=== PATIENT | male | born 1990 | race African-American/Black ===

== ENCOUNTER 2017-04-23 15:19 | Emergency (ER) | payer BC, OTHER ==
[~2017-04-23] VITALS: Ht 180.3 cm; Wt 59.0 kg
[2017-04-23] MEDS ORDERED: Tetanus/Diptheria/Pertussis Vaccine 0.5ml Syr IM ONE (16:15)
[2017-04-23] MEDS ORDERED: BACITRACIN-P28.35 GM TP (16:18)
--- NOTE | 2017-04-23 16:18 | Emergency Room Report ---
History of Present Illness General Chief Complaint: General Complaint Source: Patient Present Illness HPI 27 YO male non bleeding lac to the distal left thumb, since last night accidentally cut himself while cooking. unknown last tetanus, not on blood thinning medications. pt. also c/o increased anxiety previously was on Prozac and other medications to manage anxiety. pt. states buspar does not help. reports mild depression as well. denies SI/HI. Denies numbness tingling or loss of sensation or gross motor movements of the extremities, incontinence of bowel or bladder.Denies CP, Palpitations, LOC, AMS , dizziness, Changes in Vision, Sensation, paresthesias, or a sudden severe headache. Allergies: Coded Allergies: No Known Allergies (Unverified , 04/23/17) Patient History Past Medical History: see triage record Past Surgical History: none Pertinent Family History: none Reviewed Nursing Documentation: PMH: Agreed, PSxH: Agreed Nursing Documentation-PMH Past Medical History: No Stated History Review of Systems All Other Systems: negative except mentioned in HPI Physical Exam Vital Signs Date Time Temp Pulse Resp B/P Pulse Ox O2 Delivery O2 Flow Rate FiO2 04/23/17 15:28 99.3 72 16 121/73 96 Room Air Sp02 EP Interpretation: reviewed, normal General Appearance: no apparent distress, alert, GCS 15, non-toxic Head: normocephalic, atraumatic Eyes: bilateral eye normal inspection, bilateral eye PERRL ENT: hearing grossly normal, normal voice Neck: full range of motion, supple/symm/no masses Respiratory: lungs clear, normal breath sounds, speaking full sentences Cardiovascular #1: regular rate, rhythm Musculoskeletal: back normal, gait/station normal, normal range of motion, non- tender Neurologic: alert, oriented x3, responsive, motor strength/tone normal, sensory intact, speech normal Psychiatric: judgement/insight normal, memory normal, mood/affect normal, no suicidal/homicidal ideation, other - pt has calm affect. Skin: normal color, no rash, warm/dry, well hydrated, laceration - superficial laceration to the left thumb, clean, not bleeding at this time. Lymphatic: no adenopathy Medical Decision Making VINICIUS Anderson is my supervising physician whom pt. management has been discussed with. Diagnostic Impression: Primary Impression: Laceration Additional Impression: History of anxiety ER Course 27 YO male non bleeding lac to the distal left thumb, since last night accidentally cut himself while cooking. unknown last tetanus, not on blood thinning medications. pt. also c/o increased anxiety previously was on Prozac and other medications to manage anxiety. pt. states buspar does not help. reports mild depression as well. denies SI/HI. Denies numbness tingling or loss of sensation or gross motor movements of the extremities, incontinence of bowel or bladder. Denies CP, Palpitations, LOC, AMS , dizziness, Changes in Vision, Sensation, paresthesias, or a sudden severe headache. Ddx considered but are not limited to laceration, tendon injury, cellulitis, amputation Vital signs: are WNL, pt. is afebrile H&PE are most consistent with: superficial left thumb laceration approx 2 cm in length ORDERS: none required at this time, the diagnosis is clinical ED INTERVENTIONS: -Tetanus vaccine was administered as pt. vaccination status was unknown. - The wound was copiously irrigated with normal saline, and explored for foreign body for which no FB was found. - The wound was approximated and closed using derma-lees Patient is also given [facility] mental health information for followup. DISCHARGE: At this time pt. is stable for d/c to home. Will provide printed patient care instructions, and any necessary prescriptions. Care plan and follow up instructions have been discussed with the patient prior to discharge. Last Vital Signs Date Time Temp Pulse Resp B/P Pulse Ox O2 Delivery O2 Flow Rate FiO2 04/23/17 15:28 99.3 72 16 121/73 96 Room Air Disposition: HOME, SELF-CARE Condition: Stable Scripts Bacitracin/Polymyxin B Sulfate (BACITRACIN-POLYMYXIN OINTMENT) 28.35 Gm Oint...g. 1 APPLIC TP BID, #28.3 GM Prov: Екатерина Carlos 04/23/17 Departure Forms: Return to Work Return to Work Date: Apr 24, 2017 Work Restrictions: None Other Restrictions: please excuse for and Monday. Return to Full Activity: Apr 24, 2017 Patient Instructions: Nonsutured Laceration Care Additional Instructions: Take medications as directed. Follow up with a Psychiatric provider and PCP in 3-5 days, even if your symptoms have resolved. --Please review list of primary care clinics, if you do not already have a primary care provider Review [facility] information for follow up and medication management of your continued anxiety. Return sooner to ED if new symptoms occur, or current symptoms become worse. - Please note that this Emergency Department Report was dictated using [employer] Butler[employer] watchman technology software, occasionally this can lead to erroneous entry secondary to interpretation by the dictation equipment. Екатерина Carlos Apr 23, 2017 16:18
[2017-04-23 16:45] VITALS: BP 121/73
[2017-04-23 16:48] VITALS: BP 121/73
== END 2017-04-23 16:49 | disposition home or self-care (01) ==
LOC: EMR 16:05
DX: S61.012A Laceration without foreign body of left thumb without damage to nail, initial encounter (principal); W45.8XXA Other foreign body or object entering through skin, initial encounter; Y93.G3 Activity, cooking and baking; Y92.9 Unspecified place or not applicable; Z23 Encounter for immunization; F41.9 Anxiety disorder, unspecified
CPT/HCPCS: 90471; 90715; 96372; 96374

== ENCOUNTER 2017-05-10 17:10 | Emergency (ER) | payer OTHER ==
[~2017-05-10] VITALS: Ht 180.3 cm; Wt 59.0 kg
[~2017-05-10 17:10] MED LIST: BACITRACIN-P28.35 GM TP
[2017-05-10] MEDS ORDERED: NKM (17:23)
--- NOTE | 2017-05-10 17:26 | Emergency Room Report ---
History of Present Illness General Chief Complaint: Abdominal Pain Source: Patient Present Illness HPI 27-year-old male presents to the emergency department complaining of acute episode of lower abdominal cramping this morning that he rates as 3/10 in severity. Patient denies associated nausea, vomiting, diarrhea or constipation. Patient denies dysuria, hematuria, penile discharge, testicular pain, abdominal tenderness. He denies fevers or chills. Patient states that he had to leave from work early and is requiring a note. Patient denies rash, joint pain. He states she took a Tylenol this a.m. which provided relief. Denies CP, Palpitations, LOC, AMS, dizziness, Changes in Vision, Sensation, paresthesias, or a sudden severe headache. Allergies: Coded Allergies: No Known Allergies (Unverified , 04/23/17) Patient History Past Medical History: see triage record Past Surgical History: none Pertinent Family History: none Immunizations: UTD Reviewed Nursing Documentation: PMH: Agreed, PSxH: Agreed Nursing Documentation-PMH Past Medical History: No Stated History Review of Systems All Other Systems: negative except mentioned in HPI Physical Exam Vital Signs Date Time Temp Pulse Resp B/P (MAP) Pulse Ox O2 Delivery O2 Flow Rate FiO2 05/10/17 17:18 98.2 78 16 120/76 97 Room Air Sp02 EP Interpretation: reviewed, normal General Appearance: no apparent distress, alert, GCS 15, non-toxic Head: normocephalic, atraumatic Eyes: bilateral eye normal inspection, bilateral eye PERRL ENT: hearing grossly normal, no angioedema, normal voice Neck: full range of motion Respiratory: lungs clear, normal breath sounds, speaking full sentences Cardiovascular #1: regular rate, rhythm Gastrointestinal: normal bowel sounds, non tender, soft, non-distended, no guarding, no rebound Rectal: deferred Genitourinary: normal inspection, no CVA tenderness Musculoskeletal: back normal, gait/station normal, normal range of motion, non- tender Neurologic: alert, oriented x3, responsive, motor strength/tone normal, sensory intact, normal gait, speech normal Psychiatric: judgement/insight normal, memory normal, mood/affect normal Skin: normal color, no rash, warm/dry, well hydrated Medical Decision Making PA Attestation Dr. Vidal is my supervising Physician whom patient management has been discussed with. Diagnostic Impression: Primary Impression: Encounter for medical screening examination Additional Impression: Abdominal pain Qualified Codes: R10.30 - Lower abdominal pain, unspecified ER Course 27-year-old male presents to the emergency department complaining of acute episode of lower abdominal cramping this morning that he rates as 3/10 in severity. Patient denies associated nausea, vomiting, diarrhea or constipation. Patient denies dysuria, hematuria, penile discharge, testicular pain, abdominal tenderness. He denies fevers or chills. Patient states that he had to leave from work early and is requiring a note. Patient denies rash, joint pain. He states she took a Tylenol this a.m. which provided relief. Denies CP, Palpitations, LOC, AMS, dizziness, Changes in Vision, Sensation, paresthesias, or a sudden severe headache. Ddx considered but are not limited to Diverticulitis, acute appy, diarrhea,UC, PUD, GE, pancreatitis, gallstone, UTI, STI, Malingering-for work note Vital signs: are WNL, pt. is afebrile, NAD, NON-toxic H&PE are most consistent with isolated episode of lower abdominal cramping this am. Normal PE ORDERS: none required at this time. pt. is Asymptomatic, and NAD, Non-toxic ED INTERVENTIONS: none required at this time. -suspect misuse of Emergency Dept. Resources for work note. DISCHARGE: At this time pt. is stable for d/c to home. Will provide printed patient care instructions, and any necessary prescriptions. Care plan and follow up instructions have been discussed with the patient prior to discharge. Last Vital Signs Date Time Temp Pulse Resp B/P (MAP) Pulse Ox O2 Delivery O2 Flow Rate FiO2 05/10/17 17:18 98.2 78 16 120/76 97 Room Air Disposition: HOME, SELF-CARE Condition: Stable Departure Forms: Return to Work Return to Work Date: May 11, 2017 Work Restrictions: None Return to Full Activity: May 11, 2017 Patient Instructions: Medical Screening Exam Additional Instructions: Take any previously prescribed medications as directed. Follow up with a Primary Care Provider in 3-5 days, even if your symptoms have resolved. --Please review list of primary care clinics, if you do not already have a primary care provider Return sooner to ED if new symptoms occur, or current symptoms become worse. - Please note that this Emergency Department Report was dictated using [employer] Entertainments[employer]visor cytology technology software, occasionally this can lead to erroneous entry secondary to interpretation by the dictation equipment. Екатерина Carlos May 10, 2017 17:26
[2017-05-10 17:47] VITALS: BP 120/76
[2017-05-10 18:31] VITALS: BP 120/76
== END 2017-05-10 18:32 | disposition home or self-care (01) ==
LOC: EMR 17:48
DX: Z13.9 Encounter for screening, unspecified (principal); R10.30 Lower abdominal pain, unspecified
CPT/HCPCS: 99282

== ENCOUNTER 2017-07-20 14:02 | Emergency (ER) | payer OTHER ==
[~2017-07-20] VITALS: Ht 180.3 cm; Wt 59.0 kg
[~2017-07-20 14:02] MED LIST changes: +NKM
[2017-07-20] MEDS ORDERED: TYLENOL EXTRA500 MG ORAL (14:32)
[2017-07-20] MEDS ORDERED: ZOFRAN4 M3 ORAL (14:32)
[2017-07-20] MEDS ORDERED: METAMUCIL POWD575 GM PO (14:32)
[2017-07-20 14:34] VITALS: BP 134/72
[2017-07-20 14:38] VITALS: BP 134/72
--- NOTE | 2017-07-20 15:14 | Emergency Room Report ---
History of Present Illness General Chief Complaint: Abdominal Pain Source: Patient Present Illness HPI The patient is a 27-year-old male presenting for abdominal pain and diarrhea since this morning. he denies any recent travel or known sick contacts. Abdominal pain described as a 3/10 dull ache to the mid upper abdomen. Does not radiate. He states that he has had watery stools since this morning described as light brown. He denies any nausea or vomiting. He denies fever or chills. He states that he is currently feeling better. Allergies: Coded Allergies: No Known Allergies (Unverified , 04/23/17) Patient History Past Medical History: see triage record Pertinent Family History: none Reviewed Nursing Documentation: PMH: Agreed, PSxH: Agreed Nursing Documentation-PMH Hx Cardiac Problems: Yes Review of Systems All Other Systems: negative except mentioned in HPI Physical Exam Vital Signs Date Time Temp Pulse Resp B/P (MAP) Pulse Ox O2 Delivery O2 Flow Rate FiO2 07/20/17 14:05 97.5 115 20 134/72 99 Sp02 EP Interpretation: reviewed, normal General Appearance: no apparent distress, alert, GCS 15, non-toxic Head: normocephalic, atraumatic Eyes: bilateral eye normal inspection, bilateral eye PERRL ENT: hearing grossly normal, normal pharynx, no angioedema, normal voice Gastrointestinal: normal bowel sounds, non tender, soft, no mass, non-distended , no guarding, no rebound Rectal: deferred Genitourinary: normal inspection, no CVA tenderness Musculoskeletal: back normal, gait/station normal, normal range of motion Neurologic: alert, oriented x3, responsive, motor strength/tone normal, sensory intact, speech normal Psychiatric: judgement/insight normal, memory normal, mood/affect normal, no suicidal/homicidal ideation Skin: normal color, no rash, warm/dry, well hydrated Medical Decision Making PA Attestation Dr. Jack is my supervising physician. Patient management was discussed with my supervising physician Diagnostic Impression: Primary Impression: Diarrhea Qualified Codes: R19.7 - Diarrhea, unspecified ER Course The patient is a 27-year-old male presenting for abdominal pain and diarrhea since this morning Differential diagnoses considered but not limited to: Gastroenteritis, GERD, gastritis, appendicitis, pancreatitis PE: Vitals WNL. NAD. Abdomen: Normal appearance. Non distended. No ecchymosis. Increased BS. No abdominal tenderness. No McBurney point tenderness. No guarding. No CVA tenderness No labs are necessary at this time. He will be discharged home with prescription for zofran, tylenol, and Metamucil and will Fu with PMD. ER precautions given Last Vital Signs Date Time Temp Pulse Resp B/P (MAP) Pulse Ox O2 Delivery O2 Flow Rate FiO2 07/20/17 14:38 97.5 72 20 134/72 99 Status: improved Disposition: HOME, SELF-CARE Condition: Improved Scripts Acetaminophen* (TYLENOL EXTRA STRENGTH*) 500 Mg Tablet 500 MG ORAL Q8H Y for Prn Headache/Temp > 101, #30 TAB 0 Refills Prov: MIAH PAN.ATali 07/20/17 Psyllium Husk (with Sugar) (METAMUCIL POWDER) 575 Gm Powder 1 TBS PO DAILY, #575 GM Prov: MIAH PAN P.A. 07/20/17 Ondansetron* (ZOFRAN*) 4 Mg Tablet 4 MG ORAL Q6H Y for Nausea & Vomiting, #10 TAB Prov: MIAH PAN P.A. 07/20/17 Referrals: [facility],REFERRING (PCP) Patient Instructions: Diarrhea, Adult, Abdominal Pain, Adult Additional Instructions: I discussed my findings with the patient. All questions and concerns have been answered. Treatment and medication compliance have been addressed. Return to ED if symptoms worsen, continue past one week, new symptoms arise, you notice blood in stools, you have a fever, or if needed for any reason. Patient verbalized understanding of discharge instructions. MIAH PAN Jul 20, 2017 15:14
== END 2017-07-20 14:50 | disposition home or self-care (01) ==
LOC: EMR 14:20
DX: R19.7 Diarrhea, unspecified (principal); R10.10 Upper abdominal pain, unspecified
CPT/HCPCS: 99284

== ENCOUNTER 2017-08-09 11:30 | Emergency (ER) | payer OTHER ==
[~2017-08-09] VITALS: Ht 180.3 cm; Wt 59.0 kg
[~2017-08-09 11:30] MED LIST changes: +METAMUCIL POWD575 GM PO; +TYLENOL EXTRA500 MG ORAL; +ZOFRAN4 M3 ORAL
--- NOTE | 2017-08-09 12:26 | Emergency Room Report ---
History of Present Illness General Chief Complaint: Headache Source: Patient Present Illness HPI 27 YO Male presents to the ED c/O 12/12 in severity left sided progressing throbbing BLAKE since last night. pt. reports some mild relief with Excedrin PO, last taken at 7am. Pt. reports hx of migraines and states that current BLAKE is similar in character to BLAKE's he has experienced in the past. denies trauma, fall , neck pain/stiffness, weakness, difficulty with speech, imbalance or nausea/ vomiting. pt. denies visual or auditory symptoms. Denies CP, Palpitations, LOC, AMS, dizziness, Changes in Vision, Sensation, paresthesias, or a sudden severe headache. Allergies: Coded Allergies: No Known Allergies (Unverified , 04/23/17) Patient History Past Medical History: see triage record Past Surgical History: none Pertinent Family History: none Immunizations: UTD Reviewed Nursing Documentation: PMH: Agreed, PSxH: Agreed Nursing Documentation-PMH Past Medical History: No Stated History Hx Cardiac Problems: Yes Review of Systems All Other Systems: negative except mentioned in HPI Physical Exam Vital Signs Date Time Temp Pulse Resp B/P (MAP) Pulse Ox O2 Delivery O2 Flow Rate FiO2 08/09/17 11:32 97.7 91 14 122/74 96 Room Air Sp02 EP Interpretation: reviewed, normal General Appearance: no apparent distress, alert, GCS 15, non-toxic Head: normocephalic, atraumatic Eyes: bilateral eye normal inspection, bilateral eye PERRL ENT: hearing grossly normal, normal voice Neck: full range of motion, no meningismus, no bony tend, supple/symm/no masses Respiratory: chest non-tender, lungs clear, normal breath sounds, speaking full sentences Cardiovascular #1: regular rate, rhythm Musculoskeletal: back normal, gait/station normal, normal range of motion, non- tender Neurologic: alert, oriented x3, responsive, motor strength/tone normal, sensory intact, normal gait, speech normal, grossly normal Skin: normal color, no rash, warm/dry, well hydrated Medical Decision Making PA Attestation Dr. Jakc is my supervising Physician whom patient management has been discussed with. Diagnostic Impression: Primary Impression: Headache Qualified Codes: R51 - Headache ER Course 27 YO Male presents to the ED c/O 12/12 in severity left sided progressing throbbing BLAKE since last night. pt. reports some mild relief with Excedrin PO, last taken at 7am. Pt. reports hx of migraines and states that current BLAKE is similar in character to BLAKE's he has experienced in the past. denies trauma, fall , neck pain/stiffness, weakness, difficulty with speech, imbalance or nausea/ vomiting. pt. denies visual or auditory symptoms. Denies CP, Palpitations, LOC, AMS, dizziness, Changes in Vision, Sensation, paresthesias, or a sudden severe headache. Ddx considered but are not limited to migraine, SAH, Psedudo motor Cerebri, Mass lesion, Cluster BLAKE, Tension BLAKE, Post lumbar puncture BLAKE. Vital signs: are WNL, pt. is afebrile H&PE are most consistent with migraine headache ORDERS: -Reglan -Excedrin PO -IM Toradol ED INTERVENTIONS: -D/W pt. to follow up with his neurologist and PMD within 3-5 days, or return sooner to the ED with worsening or new symptoms. DISCHARGE: At this time pt. is stable for d/c to home. Will provide printed patient care instructions, and any necessary prescriptions. Care plan and follow up instructions have been discussed with the patient prior to discharge. Last Vital Signs Date Time Temp Pulse Resp B/P (MAP) Pulse Ox O2 Delivery O2 Flow Rate FiO2 08/09/17 11:32 97.7 91 14 122/74 96 Room Air Disposition: HOME, SELF-CARE Condition: Stable Scripts Aspirin/Acetaminophen/Caffeine (EXCEDRIN MIGRAINE GELTAB) 1 Each Tablet 1 EACH PO Q6HR, #20 TAB Prov: Екатерина Carlos P.A. 08/09/17 Metoclopramide Hcl* (REGLAN*) 5 Mg Tablet 5 MG ORAL EVERY 6 HOURS Y for For Headache, #10 TAB Prov: Екатерина Carlos P.A. 08/09/17 Patient Instructions: Migraine Headache Additional Instructions: Take medications as directed. Follow up with a Primary Care Provider and or your Neurologist in 3-5 days , even if your symptoms have resolved. --Please review list of primary care clinics, if you do not already have a primary care provider Return sooner to ED if new symptoms occur, or current symptoms become worse. - Please note that this Emergency Department Report was dictated using [employer] director technology software, occasionally this can lead to erroneous entry secondary to interpretation by the dictation equipment. Екатерина Carlos Aug 09, 2017 12:26
[2017-08-09] MEDS ORDERED: Excedrin Migraine tab ORAL ONE (12:30)
[2017-08-09] MEDS ORDERED: Ketorolac 60mg Inj IM ONE (12:30)
[2017-08-09] MEDS ORDERED: EXCEDRIN MIGRA1 EACH PO (12:40)
[2017-08-09] MEDS ORDERED: REGLAN5 MG ORAL (12:40)
[2017-08-09 12:44] VITALS: BP 120/68
[2017-08-09 12:57] VITALS: BP 128/77
== END 2017-08-09 12:58 | disposition home or self-care (01) ==
LOC: EMR 12:07
DX: R51 Headache (principal)
CPT/HCPCS: 96372; 99284

== ENCOUNTER 2017-08-16 19:34 | Emergency (ER) | payer OTHER ==
[~2017-08-16] VITALS: Ht 180.3 cm; Wt 59.0 kg
[~2017-08-16 19:34] MED LIST changes: +EXCEDRIN MIGRA1 EACH PO; +REGLAN5 MG ORAL
[2017-08-16 20:01] VITALS: BP 120/72
--- NOTE | 2017-08-16 20:04 | Emergency Room Report ---
History of Present Illness General Chief Complaint: Behavioral Complaint Source: Patient Present Illness HPI 27-year-old male presents to the emergency department complaining of continued anxiety despite taking antianxiety medication and x2 weeks. Patient states that he has not contacted his primary care provider for follow. Patient states that he has had generalized anxiety for 3 years and just recently was started on SSRI unknown name and he feels that it is not working. She reports overwhelming feelings of worry. Denies SI or HI he denies recent traumatic events or history of TB I. Denies CP, Palpitations, LOC, AMS, dizziness, Changes in Vision, Sensation, paresthesias, or a sudden severe headache. Allergies: Coded Allergies: No Known Allergies (Unverified , 04/23/17) Patient History Past Medical History: see triage record, psych hx Past Surgical History: none Pertinent Family History: none Immunizations: UTD Reviewed Nursing Documentation: PMH: Agreed, PSxH: Agreed Nursing Documentation-PMH Hx Cardiac Problems: Yes Review of Systems All Other Systems: negative except mentioned in HPI Physical Exam Vital Signs Date Time Temp Pulse Resp B/P (MAP) Pulse Ox O2 Delivery O2 Flow Rate FiO2 08/16/17 19:41 98.1 84 20 120/72 99 Room Air Sp02 EP Interpretation: reviewed, normal General Appearance: no apparent distress, alert, GCS 15, non-toxic Head: normocephalic, atraumatic Eyes: bilateral eye normal inspection, bilateral eye PERRL ENT: hearing grossly normal, normal voice Neck: full range of motion Respiratory: lungs clear, normal breath sounds, speaking full sentences Cardiovascular #1: regular rate, rhythm Musculoskeletal: back normal, gait/station normal, normal range of motion Neurologic: alert, oriented x3, responsive, motor strength/tone normal, sensory intact, normal gait, speech normal Psychiatric: judgement/insight normal, memory normal, mood/affect normal, no suicidal/homicidal ideation, other - Flat affected , yet talkative. Skin: normal color, no rash, warm/dry, well hydrated Medical Decision Making PA Attestation Dr. poole is my supervising Physician whom patient management has been discussed with. Diagnostic Impression: Primary Impression: History of anxiety ER Course 27-year-old male presents to the emergency department complaining of continued anxiety despite taking antianxiety medication and x2 weeks. Patient states that he has not contacted his primary care provider for follow. Patient states that he has had generalized anxiety for 3 years and just recently was started on SSRI unknown name and he feels that it is not working. She reports overwhelming feelings of worry. Denies SI or HI he denies recent traumatic events or history of TB I. Denies CP, Palpitations, LOC, AMS, dizziness, Changes in Vision, Sensation, paresthesias, or a sudden severe headache. Ddx considered but are not limited to anxiety, CO, PE, asthma, thyroid storm, hyperthyroid, EPS Vital signs: are WNL, pt. is afebrile H&PE are most consistent with LUL, not currently having anxiety attack. ORDERS: none required at this time, the diagnosis is clinical ED INTERVENTIONS: -I do not suspect an emergent condition at this time. With current presentation , pt. is stable for close outpatient follow up and conservative treatment. D/ w pt. to return promptly to ED with worsening or new symptoms.- Pt. (and or responsible green party) verbalizes' understanding and agreement with proposed treatment plan. -He is given reassurance that SSRIs may take up to 4 weeks before symptoms improve. Discussed the patient he is to followup with his primary prescribing doctor and be managed by one professional only. Discussed with patient I will discharge him with a small quantity of anti-anxiety medication. And also give him next is mental health urgent care referral information for any continued medication management or for prescription of any controlled antianxiety medications. DISCHARGE: At this time pt. is stable for d/c to home. Will provide printed patient care instructions, and any necessary prescriptions. Care plan and follow up instructions have been discussed with the patient prior to discharge. Last Vital Signs Date Time Temp Pulse Resp B/P (MAP) Pulse Ox O2 Delivery O2 Flow Rate FiO2 08/16/17 19:41 98.1 84 20 120/72 99 Room Air Disposition: HOME, SELF-CARE Condition: Stable Scripts Buspirone Hcl* (BUSPAR*) 10 Mg Tablet 10 MG ORAL PRN anxiety, #15 TAB 0 Refills Prov: Екатерина Carlos 08/16/17 Patient Instructions: Generalized Anxiety Disorder Additional Instructions: Take medications as directed. ---Follow up at [facility] for medication management. Follow up with a Primary Care Provider in 3-5 days, even if your symptoms have resolved. --Please review list of primary care clinics, if you do not already have a primary care provider Return sooner to ED if new symptoms occur, or current symptoms become worse. - Please note that this Emergency Department Report was dictated using [employer] mgr technology software, occasionally this can lead to erroneous entry secondary to interpretation by the dictation equipment. Екатерина Carlos Aug 16, 2017 20:04
[2017-08-16] MEDS ORDERED: BUSPAR10 MG ORAL (20:05)
[2017-08-16 20:30] VITALS: BP 118/70
== END 2017-08-16 20:29 | disposition home or self-care (01) ==
LOC: EMR 19:58
DX: F41.9 Anxiety disorder, unspecified (principal)
CPT/HCPCS: 99283

== ENCOUNTER 2017-09-06 03:17 | Emergency (ER) | payer BC, OTHER ==
[~2017-09-06] VITALS: Ht 180.3 cm; Wt 59.0 kg
[~2017-09-06 03:17] MED LIST changes: +BUSPAR10 MG ORAL
[2017-09-06 03:44] VITALS: BP 117/72
[2017-09-06] MEDS ORDERED: IBUPROFEN600 MG ORAL (03:56)
--- NOTE | 2017-09-06 03:56 | Emergency Room Report ---
History of Present Illness General Chief Complaint: Diarrhea Source: Patient Present Illness HPI This is a 27-year-old male with a history of anxiety. He present she complaining of abdominal cramps and diarrhea. Onset was yesterday. He had to leave work early. He denies any fever or chills. Diarrhea is watery. Pain is crampy in nature. Nothing made it better. Nothing made it worse. Allergies: Coded Allergies: No Known Allergies (Unverified , 04/23/17) Patient History Past Medical History: see triage record, old chart reviewed, psych hx Past Surgical History: other Pertinent Family History: none Social History: Denies: smoking Immunizations: other Reviewed Nursing Documentation: PMH: Agreed, PSxH: Agreed Nursing Documentation-PMH Past Medical History: No Stated History Hx Cardiac Problems: No Review of Systems Eye: Denies: eye pain, blurred vision ENT: Denies: ear pain, nose congestion, throat swelling Respiratory: Denies: cough, shortness of breath Cardiovascular: Denies: chest pain, palpitations Gastrointestinal: Reports: abdominal pain, diarrhea, Denies: nausea, vomiting Musculoskeletal: Denies: back pain, joint pain Skin: Denies: rash Neurological: Denies: headache, numbness Endocrine: Denies: increased thirst, increased urine Hematologic/Lymphatic: Denies: easy bruising All Other Systems: negative except mentioned in HPI Physical Exam Vital Signs Date Time Temp Pulse Resp B/P (MAP) Pulse Ox O2 Delivery O2 Flow Rate FiO2 09/06/17 03:24 97.9 74 12 117/72 96 Room Air vitals normal Sp02 EP Interpretation: reviewed, normal General Appearance: well appearing, no apparent distress, alert Head: normocephalic, atraumatic Eyes: bilateral eye PERRL, bilateral eye EOMI ENT: hearing grossly normal, normal pharynx Neck: full range of motion, supple, no meningismus Respiratory: chest non-tender, lungs clear, normal breath sounds Cardiovascular #1: regular rate, rhythm, no murmur Gastrointestinal: non tender, no mass, no organomegaly, no bruit, non-distended , abnormal bowel sounds - Hyperactive Musculoskeletal: back normal, gait/station normal, normal range of motion Psychiatric: mood/affect normal Skin: warm/dry Medical Decision Making Diagnostic Impression: Primary Impression: Diarrhea Qualified Codes: R19.7 - Diarrhea, unspecified ER Course Present with diarrhea. Most likely viral in nature. No evidence of an acute abdomen or obstruction. He looks well otherwise. We'll discharge home with reassurance. Last Vital Signs Date Time Temp Pulse Resp B/P (MAP) Pulse Ox O2 Delivery O2 Flow Rate FiO2 09/06/17 03:44 97.9 12 117/72 96 Room Air 09/06/17 03:24 74 Status: unchanged Disposition: HOME, SELF-CARE Condition: Stable Scripts Ibuprofen* (MOTRIN*) 600 Mg Tablet 600 MG ORAL THREE TIMES A DAY, #30 TAB 0 Refills Prov: YASH BOSCH M.D. 09/06/17 Patient Instructions: Diarrhea, Adult Additional Instructions: Followup with your Dr. in 7 days as needed. Return if symptom worsen. May take Motrin for pain. YASH BOSCH M.D. Sep 06, 2017 03:56
[2017-09-06 04:05] VITALS: BP 120/74
[2017-09-06 04:08] VITALS: BP 120/74
== END 2017-09-06 04:14 | disposition home or self-care (01) ==
LOC: EMR 04:14
DX: R19.7 Diarrhea, unspecified (principal)
CPT/HCPCS: 99283

== ENCOUNTER 2017-09-22 11:58 | Emergency (ER) | payer BC, OTHER ==
[~2017-09-22] VITALS: Ht 180.3 cm; Wt 59.0 kg
[~2017-09-22 11:58] MED LIST changes: +IBUPROFEN600 MG ORAL
[2017-09-22 12:01] VITALS: BP 125/73
[2017-09-22] MEDS ORDERED: Lidocaine 2% Visc 15ml soln ORAL ONE (12:30)
[2017-09-22] MEDS ORDERED: Mylanta II UD 30ml ORAL ONE (12:30)
[2017-09-22] MEDS ORDERED: Dicyclomine HCl 10mg/5ml oral soln ORAL ONE (12:30)
[2017-09-22] MEDS ORDERED: PEPCID20 MG ORAL (13:24)
[2017-09-22] MEDS ORDERED: ZOFRAN4 M3 ORAL (13:24)
[2017-09-22 13:28] VITALS: BP 125/73
--- NOTE | 2017-09-22 21:54 | Emergency Room Report ---
History of Present Illness General Chief Complaint: Abdominal Pain Source: Patient Present Illness HPI The patient is a 27 -year-old male presenting for 2 days of mid upper abdominal pain. he states that this radiates to his mid chest. He has also noticed some fluid accumulation in his mouth. This is worse with laying down and eating. He also admits to nausea but denies vomiting. Pain is an 8/10 burning sensation. he denies other symptoms including fever, chills, diarrhea Allergies: Coded Allergies: No Known Allergies (Unverified , 04/23/17) Patient History Past Medical History: see triage record Pertinent Family History: none Reviewed Nursing Documentation: PMH: Agreed, PSxH: Agreed Nursing Documentation-PMH Past Medical History: No Stated History Hx Cardiac Problems: No Review of Systems All Other Systems: negative except mentioned in HPI Physical Exam Vital Signs Date Time Temp Pulse Resp B/P (MAP) Pulse Ox O2 Delivery O2 Flow Rate FiO2 09/22/17 12:01 97.0 83 16 125/73 97 Room Air Sp02 EP Interpretation: reviewed, normal General Appearance: no apparent distress, alert, GCS 15, non-toxic Head: normocephalic, atraumatic Eyes: bilateral eye normal inspection, bilateral eye PERRL ENT: hearing grossly normal, normal pharynx, no angioedema, normal voice Neck: full range of motion, supple/symm/no masses Respiratory: chest non-tender, lungs clear, normal breath sounds, speaking full sentences Cardiovascular #1: regular rate, rhythm, no edema Gastrointestinal: normal bowel sounds, soft, tenderness - epigastric Genitourinary: normal inspection, no CVA tenderness Musculoskeletal: back normal, gait/station normal, normal range of motion, non- tender Neurologic: alert, oriented x3, responsive, motor strength/tone normal, sensory intact, speech normal Psychiatric: judgement/insight normal, memory normal, mood/affect normal, no suicidal/homicidal ideation Skin: normal color, no rash, warm/dry, well hydrated Medical Decision Making PA Attestation Dr. Conroy is my supervising physician. Patient management was discussed with my supervising physician Diagnostic Impression: Primary Impression: GERD (gastroesophageal reflux disease) Qualified Codes: K21.9 - Gastro-esophageal reflux disease without esophagitis ER Course The patient is a 27 -year-old male presenting for 2 days of mid upper abdominal pain. Differential diagnoses considered but not limited to: GERD, gastritis, gastric ulcer, gastroenteritis Physical exam: Vitals within normal limits. No apparent distress RRR. Lungs are clear to auscultation bilaterally Abdomen is soft. Normal bowel sounds. Nondistended. There is tenderness to palpation over epigastric region only The patient is given a GI cocktail and Zofran and is feeling much better. he will be discharged home and treated for GERD. ER precautions are given Last Vital Signs Date Time Temp Pulse Resp B/P (MAP) Pulse Ox O2 Delivery O2 Flow Rate FiO2 09/22/17 13:28 97.0 78 16 125/73 97 Room Air Status: improved Disposition: HOME, SELF-CARE Condition: Improved Scripts Ondansetron* (ZOFRAN*) 4 Mg Tablet 4 MG ORAL Q6H Y for Nausea & Vomiting, #15 TAB Prov: MIAH PAN 09/22/17 Famotidine (PEPCID) 20 Mg Tablet 20 MG ORAL DAILY, #7 TAB 0 Refills Prov: MIAH PAN 09/22/17 Patient Instructions: Abdominal Pain, Adult, Gastroesophageal Reflux Disease, Adult Additional Instructions: I discussed my findings with the patient. All questions and concerns have been answered. Treatment and medication compliance have been addressed. I advised the patient that they need to follow up with PMD in 3-5 days. Return to ED if symptoms worsen, new symptoms arise, or if needed for any reason. Patient verbalized understanding of discharge instructions. MIAH PAN Sep 22, 2017 21:54
== END 2017-09-22 13:30 | disposition home or self-care (01) ==
LOC: EMR 12:39
DX: K21.9 Gastro-esophageal reflux disease without esophagitis (principal)
CPT/HCPCS: 99284

== ENCOUNTER 2018-01-24 18:27 | Emergency (ER) | payer BC, OTHER ==
[~2018-01-24] VITALS: Ht 180.3 cm; Wt 59.0 kg
[~2018-01-24 18:27] MED LIST changes: +PEPCID20 MG ORAL
[2018-01-24 19:21] VITALS: BP 117/77
--- NOTE | 2018-01-24 19:22 | Emergency Room Report ---
History of Present Illness General Chief Complaint: General Complaint Source: Patient, Medical Record Present Illness HPI 27-year-old male patient presents ER complaining of panic attack. Patient reports feeling dizzy after the attack, denies acute symptoms at this time. Denies suicidal or homicidal ideation. Patient requesting refill of medication that can help treat his panic attacks, patient states his present taken Xanax for relief of his symptoms, states he is "not asking for Xanax" but some alternative medication that can help treat his panic attacks. Denies fever, chest pain, shortness of breath. Allergies: Coded Allergies: No Known Allergies (Unverified , 04/23/17) Patient History Past Medical History: see triage record Reviewed Nursing Documentation: PMH: Agreed; PSxH: Agreed Nursing Documentation-PMH Past Medical History: No History, Except For Hx Cardiac Problems: No Review of Systems All Other Systems: negative except mentioned in HPI Physical Exam Vital Signs Date Time Temp Pulse Resp B/P (MAP) Pulse Ox O2 Delivery O2 Flow Rate FiO2 01/24/18 18:55 98.2 81 18 117/77 95 Room Air 98.2 Sp02 EP Interpretation: reviewed, normal General Appearance: well appearing, no apparent distress, alert, GCS 15, non- toxic Head: normocephalic, atraumatic Eyes: bilateral eye normal inspection, bilateral eye PERRL ENT: hearing grossly normal, normal pharynx, no angioedema, normal voice, uvula midline, moist mucus membranes Neck: full range of motion Respiratory: lungs clear, normal breath sounds, no rhonchi, no respiratory distress, no accessory muscle use, no wheezing, speaking full sentences Cardiovascular #1: regular rate, rhythm, no edema Gastrointestinal: non tender, soft, no mass, non-distended, no guarding, no rebound Genitourinary: no CVA tenderness Musculoskeletal: back normal, digits/nails normal, gait/station normal, normal range of motion, non-tender Neurologic: alert, oriented x3, responsive, sheet cutter III-XII nml as tested, motor strength/tone normal, sensory intact, cerebellar normal, normal gait, speech normal Psychiatric: mood/affect normal, no suicidal/homicidal ideation Skin: no rash Lymphatic: no adenopathy Medical Decision Making PA Attestation Dr. Vidal is my supervising Physician whom patient management has been discussed with. Diagnostic Impression: Primary Impression: History of panic attacks ER Course Pt. presents to the ED requesting medication for panic attacks following attack earlier today, denies acute symptoms at this time. Multiple differentials were considered. Vital signs: are WNL, pt. is afebrile ORDERS: PE benign, lungs clear to auscultation, no abdominal tenderness to palpation, cranial nerves intact as tested. Informed patient the ER cannot begin new medications for anxiety and/or panic disorders. Needs to follow-up with mental health professional and/or PCP for further treatment and management due to side effects related to medication use. We'll not provide refill of Xanax medication. Instructed patient to follow up with [facility] and or [facility] urgent care. Provide patient with contact information for both. Patient reports he will contact his primary care provider tomorrow to discuss treatment plan. Does not believe patient is danger to himself or others right now. Patient walking and talking without difficulty, in no acute distress, nontoxic- appearing. patient reports understanding and agreement to treatment plan. Informed patient ER cannot provide refills in the future; followup, management and prescription of long-term medications must be performed by primary care provider. patient reports no acute symptoms at this time. ER precautions given. patient does not require workup with labs at this time., Consult with Dr. Vidal, agrees with treatment and plan. DISCHARGE: No Rx provided at this time. At this time pt is stable for d/c to home. Patient is resting comfortably, in no acute distress, nontoxic appearing, talking without difficulty. Patient to take medications as instructed Will provide with patient care instructions and any necessary prescriptions. Care plan and follow-up instructions provided. Patient instructed to follow-up with primary care provider in 3 - 5 days. Patient questions asked and answered. Patient reports understanding and agreement to treatment plan. ER precautions given. Patient instructed to return to ER immediately for any new or worsening of symptoms including but not limited to increasing SOB, persistent fever. - Please note that this Emergency Department Report was dictated using [employer].fmelectrical laboratory technician technology software, occasionally this can lead to erroneous entry secondary to interpretation by the dictation equipment. Last Vital Signs Date Time Temp Pulse Resp B/P (MAP) Pulse Ox O2 Delivery O2 Flow Rate FiO2 01/24/18 18:55 98.2 81 18 117/77 95 Room Air 98.2 Disposition: HOME, SELF-CARE Condition: Stable Referrals: [facility],REFERRING (PCP) Patient Instructions: Panic Attacks, [id number] Additional Instructions: Followup with primary care provider and/or mental health professional for management and treatment of panic attacks and anxiety disorder. Provided with contact information for mental health urgent care. May also follow up at [facility]. Take medications as directed. Patient questions asked and answered. ER precautions given, patient instructed to return to ER immediately for any new or worsening of symptoms. Gurmeet Alcantara January 24, 2018 19:22
[2018-01-24 19:42] VITALS: BP 117/77
== END 2018-01-24 19:40 | disposition home or self-care (01) ==
LOC: EMR 19:14
DX: F41.0 Panic disorder [episodic paroxysmal anxiety] (principal)
CPT/HCPCS: 99283

== ENCOUNTER 2018-02-13 20:33 | Emergency (ER) | payer BC, OTHER ==
[~2018-02-13] VITALS: Ht 180.3 cm; Wt 59.0 kg
[2018-02-13] MEDS ORDERED: Mylanta II UD 30ml ORAL ONE (21:15)
[2018-02-13] MEDS ORDERED: Lidocaine 2% Visc 15ml soln ORAL ONE (21:15)
[2018-02-13] MEDS ORDERED: Dicyclomine HCl 10mg/5ml oral soln ORAL ONE (21:15)
[2018-02-13 21:34] LABS: EOSINOPHILS % (AUTO) 0.4 % (0.0-3.0); HEMATOCRIT 42.7 % (42.0-52.0); HEMOGLOBIN 14.9 G/DL (14.2-18.0); LYMPHOCYTES % (AUTO) 20.6 % (20.0-45.0); MEAN CORPUSCULAR VOLUME 94 FL (80-99); MONOCYTES % (AUTO) 6.3 % (1.0-10.0); NEUTROPHILS % (AUTO) 71.7 % (45.0-75.0); PLATELET COUNT 162 K/UL (150-450); RED BLOOD COUNT 4.53 M/UL (4.70-6.10); WHITE BLOOD COUNT 8.7 K/UL (4.8-10.8)
[2018-02-13 21:43] LABS: ANION GAP 6 mmol/L (5-15); BLOOD UREA NITROGEN 15 mg/dL (7-18); CALCIUM 8.9 MG/DL (8.5-10.1); CARBON DIOXIDE 30 MMOL/L (21-32); CHLORIDE 107 MMOL/L (98-107); CREATININE 1.4 MG/DL (0.55-1.30); POTASSIUM 3.3 MMOL/L (3.5-5.1); SODIUM 143 MMOL/L (136-145)
[2018-02-13 21:53] LABS: ALANINE AMINOTRANSFERASE 30 U/L (12-78); ALBUMIN 4.2 G/DL (3.4-5.0); ALBUMIN/GLOBULIN RATIO 1.3 (1.0-2.7); ALKALINE PHOSPHATASE 71 U/L (46-116); ASPARTATE AMINO TRANSFERASE 19 U/L (15-37); BILIRUBIN,TOTAL 1.3 MG/DL (0.2-1.0)
[2018-02-13 21:54] LABS: BILIRUBIN,DIRECT 0.3 MG/DL (0.0-0.3)
[2018-02-13] MEDS ORDERED: RANITIDINE HCL150 MG ORAL (22:33)
[2018-02-13] MEDS ORDERED: ONDANSETRON ODT4 MG BC (22:33)
[2018-02-13 22:45] VITALS: BP 127/78
--- NOTE | 2018-02-14 01:56 | Emergency Room Report ---
History of Present Illness General Chief Complaint: Vomiting Source: Patient Present Illness HPI 27-year-old male presents ED complaining of abdominal pain nausea and vomiting. Started this morning. Has had multiple episodes of vomiting since. Pain is dull, 4 out of 10, nonradiating. Denies fevers or chills. Denies diarrhea. Denies chest pain or shortness of breath. He believes it may be related to some food he ate last night. No other aggravating or relieving factors. Denies any other associated symptoms Allergies: Coded Allergies: No Known Allergies (Unverified , 04/23/17) Patient History Past Medical History: none Past Surgical History: none Pertinent Family History: none Social History: Denies: smoking, alcohol use, drug use Immunizations: UTD Reviewed Nursing Documentation: PMH: Agreed; PSxH: Agreed Nursing Documentation-PMH Past Medical History: No Stated History Hx Cardiac Problems: No Review of Systems All Other Systems: negative except mentioned in HPI Physical Exam Vital Signs Date Time Temp Pulse Resp B/P (MAP) Pulse Ox O2 Delivery O2 Flow Rate FiO2 02/13/18 20:43 98.6 94 16 127/78 95 Room Air 98.6 Sp02 EP Interpretation: reviewed, normal General Appearance: no apparent distress, alert, GCS 15, non-toxic Head: normocephalic, atraumatic Eyes: bilateral eye normal inspection, bilateral eye PERRL ENT: hearing grossly normal, normal pharynx, no angioedema, normal voice Neck: full range of motion, supple/symm/no masses Respiratory: chest non-tender, lungs clear, normal breath sounds, speaking full sentences Cardiovascular #1: regular rate, rhythm, no edema Cardiovascular #2: 2+ carotid (R), 2+ carotid (L), 2+ radial (R), 2+ radial (L) , 2+ dorsalis pedis (R), 2+ dorsalis pedis (L) Gastrointestinal: normal bowel sounds, non tender, soft, non-distended, no guarding, no rebound Rectal: deferred Genitourinary: normal inspection, no CVA tenderness Musculoskeletal: back normal, gait/station normal, normal range of motion, non- tender Neurologic: alert, oriented x3, responsive, motor strength/tone normal, sensory intact, speech normal Psychiatric: judgement/insight normal, memory normal, mood/affect normal, no suicidal/homicidal ideation Reflexes: 3+ bicep (R), 3+ bicep (L), 3+ tricep (R), 3+ tricep (L), 3+ knee (R) , 3+ knee (L) Skin: normal color, no rash, warm/dry, well hydrated Lymphatic: no adenopathy Medical Decision Making Diagnostic Impression: Primary Impression: Gastritis Qualified Codes: K29.00 - Acute gastritis without bleeding ER Course Hospital Course 27-year-old M presents to ED with epigastric pain with N/V. differential diagnosis: gastritis, SBO, cholecystits Clinical course Patient placed on stretcher. On monitor car operator. After initial history and physical I ordered labs, IV fluids, Zofran and pepcid and GI cocktail Labs - no leukocytosis, no electrolyte abnormalities, LFTs ok Upon reassessment, patient states pain has improved. findings consistent with gastritis I feel this is a highly complex case requiring extensive working including EKG/ Rhythm strip, Xray/CT/US, Blood/urine lab work, repeat exams while in ED, and administration of strong opiates/narcotics for pain control, admission to hospital or close patient follow up. Diagnosis - gastritis Stable and discharged to home with prescriptions for Zantac, zofran. Followup with PMD. Return to ED if symptoms recur or worsen Labs Test 02/13/18 21:15 White Blood Count 8.7 K/UL (4.8-10.8) Red Blood Count 4.53 M/UL (4.70-6.10) Hemoglobin 14.9 G/DL (14.2-18.0) Hematocrit 42.7 % (42.0-52.0) Mean Corpuscular Volume 94 FL (80-99) Mean Corpuscular Hemoglobin 33.0 PG (27.0-31.0) Mean Corpuscular Hemoglobin Concent 35.0 G/DL (32.0-36.0) Red Cell Distribution Width 11.0 % (11.6-14.8) Platelet Count 162 K/UL (150-450) Mean Platelet Volume 7.2 FL (6.5-10.1) Neutrophils (%) (Auto) 71.7 % (45.0-75.0) Lymphocytes (%) (Auto) 20.6 % (20.0-45.0) Monocytes (%) (Auto) 6.3 % (1.0-10.0) Eosinophils (%) (Auto) 0.4 % (0.0-3.0) Basophils (%) (Auto) 1.0 % (0.0-2.0) Sodium Level 143 MMOL/L (136-145) Potassium Level 3.3 MMOL/L (3.5-5.1) Chloride Level 107 MMOL/L (98-107) Carbon Dioxide Level 30 MMOL/L (21-32) Anion Gap 6 mmol/L (5-15) Blood Urea Nitrogen 15 mg/dL (7-18) Creatinine 1.4 MG/DL (0.55-1.30) Estimat Glomerular Filtration Rate > 60 mL/min (>60) Glucose Level 133 MG/DL (74-106) Calcium Level 8.9 MG/DL (8.5-10.1) Total Bilirubin 1.3 MG/DL (0.2-1.0) Direct Bilirubin 0.3 MG/DL (0.0-0.3) Aspartate Amino Transf (AST/SGOT) 19 U/L (15-37) Alanine Aminotransferase (ALT/SGPT) 30 U/L (12-78) Alkaline Phosphatase 71 U/L (46-116) Total Protein 7.4 G/DL (6.4-8.2) Albumin 4.2 G/DL (3.4-5.0) Globulin 3.2 g/dL Albumin/Globulin Ratio 1.3 (1.0-2.7) Lipase 94 U/L (73-393) Last Vital Signs Date Time Temp Pulse Resp B/P (MAP) Pulse Ox O2 Delivery O2 Flow Rate FiO2 02/13/18 22:45 98.6 16 127/78 95 Room Air 98.6 02/13/18 20:43 94 Status: improved Disposition: HOME, SELF-CARE Condition: Stable Scripts Ranitidine Hcl* (ZANTAC*) 150 Mg Tablet 150 MG ORAL TWICE A DAY, #30 TAB Prov: Ace Gil MD 02/13/18 Ondansetron Odt* (ZOFRAN ODT*) 4 Mg Tab.rapdis 4 MG BC EVERY 6 HOURS PRN for Nausea & Vomiting, #10 TAB 0 Refills Prov: Ace Gil MD 02/13/18 Patient Instructions: Gastritis, Adult, [id number] Ace Gil MD Feb 14, 2018 01:56
== END 2018-02-13 22:50 | disposition home or self-care (01) ==
LOC: EMR 21:05
DX: K29.70 Gastritis, unspecified, without bleeding (principal)
CPT/HCPCS: 36415; 80053; 82248; 83690; 85025; 96361; 96374; 96375; 99284; J2405; S0028; 96360

== ENCOUNTER 2018-05-01 05:02 | Emergency (ER) | payer OTHER ==
[~2018-05-01] VITALS: Ht 180.3 cm; Wt 59.0 kg
[~2018-05-01 05:02] MED LIST changes: +ONDANSETRON ODT4 MG BC; +RANITIDINE HCL150 MG ORAL
[2018-05-01 05:45] VITALS: BP 118/70
[2018-05-01] MEDS ORDERED: Ketorolac 60mg Inj IM ONE (05:45)
--- NOTE | 2018-05-01 05:50 | Emergency Room Report ---
History of Present Illness General Chief Complaint: Headache Source: Patient Present Illness HPI Patient present with complaints of headache that has been ongoing for the past day Denies any visual changes denies any neck pain denies any photophobia patient reports that he has had migraines in the past he does get flareups every few months Denies any focal weakness denies any chest pain or shortness of breath He reports taking and Excedrin with minimal relief Denies any recent travel denies any trauma Allergies: Coded Allergies: No Known Allergies (Unverified , 04/23/17) Patient History Past Medical History: see triage record Pertinent Family History: none Reviewed Nursing Documentation: PMH: Agreed; PSxH: Agreed Nursing Documentation-PMH Hx Cardiac Problems: No - MIGRAINE History Of Psychiatric Problem: Yes - DEPRESSION,ANXIETY Review of Systems All Other Systems: negative except mentioned in HPI Physical Exam Vital Signs Date Time Temp Pulse Resp B/P (MAP) Pulse Ox O2 Delivery O2 Flow Rate FiO2 05/01/18 05:18 98.5 54 18 118/70 96 Room Air 98.4 Sp02 EP Interpretation: reviewed, normal General Appearance: well appearing, no apparent distress Head: normocephalic, atraumatic Eyes: bilateral eye PERRL, bilateral eye EOMI ENT: hearing grossly normal, normal pharynx, TMs + canals normal, uvula midline Neck: full range of motion, supple, no meningismus, no bony tend Respiratory: lungs clear, normal breath sounds, no rhonchi, no respiratory distress, no retraction, no accessory muscle use Cardiovascular #1: normal peripheral pulses, regular rate, rhythm, no edema, no gallop, no JVD, no murmur Gastrointestinal: normal bowel sounds, non tender, soft, no mass, no organomegaly, non-distended, no guarding, no hernia, no pulsatile mass, no rebound Genitourinary: no CVA tenderness Musculoskeletal: normal inspection Neurologic: oriented x3, responsive, warehouse assistant III-XII nml as tested, motor strength/ tone normal, sensory intact Psychiatric: mood/affect normal Skin: normal color, no rash, warm/dry, palpation normal Lymphatic: normal inspection, no adenopathy Medical Decision Making Diagnostic Impression: Primary Impression: Headache ER Course Patient has a benign neurological exam Differentials of headache including but not limited to meningitis, neurosurgical , neurological pathology entertained We discussed multiple interventions including oral medication versus IM injection versus other medication Patient reports Last Vital Signs Date Time Temp Pulse Resp B/P (MAP) Pulse Ox O2 Delivery O2 Flow Rate FiO2 05/01/18 05:18 98.5 54 18 118/70 96 Room Air 98.4 Status: improved Disposition: HOME, SELF-CARE Condition: Improved Scripts Tramadol Hcl* (ULTRAM*) 50 Mg Tablet 50 MG ORAL Q8HR PRN for For Pain, #10 TAB 0 Refills Prov: Sadiq Abbasi DO 05/01/18 Additional Instructions: Patient is provided with the discharge instructions notified to follow up with primary doctor in the next 2-3 days otherwise return to the er with any worsening symptoms. Please note that this report is being documented using [employer] technology. This can lead to erroneous entry secondary to incorrect interpretation by the dictating instrument. Sadiq Abbasi DO May 01, 2018 05:50
[2018-05-01] MEDS ORDERED: TRAMADOL HCL50 MG ORAL (06:09)
[2018-05-01 06:46] VITALS: BP 122/69
== END 2018-05-01 06:37 | disposition home or self-care (01) ==
LOC: EMR 05:26
DX: R51 Headache (principal); F32.9 Major depressive disorder, single episode, unspecified; F41.9 Anxiety disorder, unspecified
CPT/HCPCS: 96372; 99283

== ENCOUNTER 2018-05-25 14:27 | Emergency (ER) | payer OTHER ==
[~2018-05-25] VITALS: Ht 180.3 cm; Wt 59.0 kg
[~2018-05-25 14:27] MED LIST changes: +TRAMADOL HCL50 MG ORAL
[2018-05-25 14:55] VITALS: BP 107/74
[2018-05-25] MEDS ORDERED: LORazepam 0.5mg tab ORAL ONE (15:00)
--- NOTE | 2018-05-25 15:02 | Emergency Room Report ---
History of Present Illness General Chief Complaint: Behavioral Complaint Source: Patient Present Illness HPI 28-year-old male presents to the emergency department for increased anxiousness. Patient reports that he is currently seeing a psychiatrist for anxiety and he is been put on trials of several different medications which have not helped. Patient denies diaphoresis, significant changes in weight, chest pain, or palpitations. Pt. reports eating a normal diet. no SI/HI, hallucinations, delusions or PSA. Denies pain. Allergies: Coded Allergies: No Known Allergies (Unverified , 04/23/17) Patient History Past Medical History: see triage record Past Surgical History: none Pertinent Family History: none Reviewed Nursing Documentation: PMH: Agreed; PSxH: Agreed Nursing Documentation-PMH Past Medical History: No History, Except For Hx Cardiac Problems: No - MIGRAINE History Of Psychiatric Problem: Yes - anxiety Review of Systems All Other Systems: negative except mentioned in HPI Physical Exam Vital Signs Date Time Temp Pulse Resp B/P (MAP) Pulse Ox O2 Delivery O2 Flow Rate FiO2 05/25/18 14:38 98.5 82 18 107/74 98 Room Air 98.4 Sp02 EP Interpretation: reviewed, normal General Appearance: no apparent distress, alert, GCS 15, non-toxic Head: normocephalic, atraumatic Eyes: bilateral eye normal inspection, bilateral eye PERRL ENT: hearing grossly normal, normal voice Neck: full range of motion Respiratory: lungs clear, normal breath sounds, speaking full sentences Cardiovascular #1: regular rate, rhythm Musculoskeletal: back normal, gait/station normal, normal range of motion, non- tender Neurologic: alert, oriented x3, responsive, motor strength/tone normal, sensory intact, speech normal, grossly normal Psychiatric: judgement/insight normal Skin: normal color, no rash, warm/dry, well hydrated, other - no scars, cuts or evidence of self harm. Medical Decision Making PA Attestation Dr. poole is my supervising Physician whom patient management has been discussed with. Diagnostic Impression: Primary Impression: Anxiousness ER Course 28-year-old male presents to the emergency department for increased anxiousness. Patient reports that he is currently seeing a psychiatrist for anxiety and he is been put on trials of several different medications which have not helped. Patient denies diaphoresis, significant changes in weight, chest pain, or palpitations. Pt. reports eating a normal diet. no SI/HI, hallucinations, delusions or PSA. Denies pain. Ddx considered but are not limited to: drug seeking, OD, Anxiety attack, non- emergent medication management request just to name a few. Vital signs: are WNL, pt. is afebrile H&PE are most consistent with need for medication refill. ORDERS: none required at this time, the diagnosis is clinical ED INTERVENTIONS: -Ativan PO - D/w pt. that he will be d/c with some buspar a non-addictive anxiolytic. He needs to follow up with psychiatrist for any further medication management. D/w pt. that he is stable for non-emergent outpatient medication management. DISCHARGE: At this time pt. is stable for d/c to home. Will provide printed patient care instructions, and any necessary prescriptions. Care plan and follow up instructions have been discussed with the patient prior to discharge. Last Vital Signs Date Time Temp Pulse Resp B/P (MAP) Pulse Ox O2 Delivery O2 Flow Rate FiO2 05/25/18 14:55 98.4 82 18 107/74 98 Room Air 98.4 Disposition: HOME, SELF-CARE Condition: Stable Scripts Buspirone Hcl* (BUSPAR*) 10 Mg Tablet 10 MG ORAL THREE TIMES A DAY, #15 TAB 0 Refills Prov: Екатерина Carlos 05/25/18 Patient Instructions: Medicine Refill at the Emergency Department Additional Instructions: Take medications as directed. Follow up with a Primary Care Provider or Psychiatrist within 3-5 days, even if your symptoms have resolved. Return sooner to ED if new symptoms occur, or current symptoms become worse. - Please note that this Emergency Department Report was dictated using MYOScardiac cath technologist technology software, occasionally this can lead to erroneous entry secondary to interpretation by the dictation equipment. Екатерина Carlos May 25, 2018 15:02
[2018-05-25] MEDS ORDERED: BUSPAR10 MG ORAL (15:07)
[2018-05-25 15:30] VITALS: BP 107/74
== END 2018-05-25 15:39 | disposition home or self-care (01) ==
LOC: EMR 15:10
DX: F41.9 Anxiety disorder, unspecified (principal)
CPT/HCPCS: 99283

== ENCOUNTER 2018-06-04 18:43 | Emergency (ER) | payer OTHER ==
[~2018-06-04] VITALS: Ht 180.3 cm; Wt 59.0 kg
[2018-06-04 19:15] VITALS: BP 114/68
--- NOTE | 2018-06-04 20:07 | Emergency Room Report ---
History of Present Illness General Chief Complaint: Vertigo Source: Patient Present Illness HPI 28-year-old male presents to the emergency department complaining of intermittent dizziness status post starting a new SSRI medication for his depression. Patient reports that he saw the vertigo/dizziness is one of the medication side effects and that he has begun experiencing some of that. Patient reports he is on his second week of taking the medication. Patient denies recent head injury, blurry vision, weakness, palpitations, paresthesias, sudden onset headache recent URI or tinnitus. Patient is requesting medication for his symptoms he states that he did try some antihistamine at home which helped relieve his symptoms temporarily. Denies rash, N/V, fevers or chills. Allergies: Coded Allergies: No Known Allergies (Unverified , 04/23/17) Patient History Past Medical History: see triage record, psych hx Past Surgical History: none Pertinent Family History: none Reviewed Nursing Documentation: PMH: Agreed; PSxH: Agreed Nursing Documentation-PMH Past Medical History: No History, Except For Hx Cardiac Problems: No - MIGRAINE Review of Systems All Other Systems: negative except mentioned in HPI Physical Exam Vital Signs Date Time Temp Pulse Resp B/P (MAP) Pulse Ox O2 Delivery O2 Flow Rate FiO2 06/04/18 18:47 98.7 93 18 114/68 98 Room Air 98.8 Sp02 EP Interpretation: reviewed, normal General Appearance: no apparent distress, alert, GCS 15, non-toxic Head: normocephalic, atraumatic Eyes: bilateral eye normal inspection, bilateral eye PERRL, bilateral eye other - no nystagmus ENT: hearing grossly normal, no angioedema, normal voice Neck: full range of motion Respiratory: lungs clear, normal breath sounds, speaking full sentences Cardiovascular #1: regular rate, rhythm Musculoskeletal: back normal, gait/station normal, normal range of motion, non- tender Neurologic: alert, oriented x3, responsive, motor strength/tone normal, sensory intact, cerebellar normal, normal gait, speech normal, other - No Nystagmus. not ataxic, grossly normal Psychiatric: judgement/insight normal, no suicidal/homicidal ideation Skin: normal color, no rash, warm/dry, well hydrated Lymphatic: no adenopathy Medical Decision Making PA Attestation Dr. Jack is my supervising Physician whom patient management has been discussed with. Diagnostic Impression: Primary Impression: Medication side effect ER Course 28-year-old male presents to the emergency department complaining of intermittent dizziness status post starting a new SSRI medication for his depression. Patient reports that he saw the vertigo/dizziness is one of the medication side effects and that he has begun experiencing some of that. Patient reports he is on his second week of taking the medication. Patient denies recent head injury, blurry vision, weakness, palpitations, paresthesias, sudden onset headache recent URI or tinnitus. Patient is requesting medication for his symptoms he states that he did try some antihistamine at home which helped relieve his symptoms temporarily. Denies significant positional changes. Denies rash, N/V, fevers or chills. Pt. is also requesting a work note. Ddx considered but are not limited to Mnire's, BPPV, labrinitis, cerebellar stroke, hypovolemia, cardiac cause, medication side effect, somatization just to name a few. Vital signs: are WNL, pt. is afebrile H&PE are most consistent with : Benign neurological exam, possible medication SE , suspect anxiety related/somatization ORDERS: -None required at this time no evidence of focal neurological deficit, no nystagmus. ED INTERVENTIONS: none at this time. pt. is not currently experiencing symptoms. DISCHARGE: At this time pt. is stable for d/c to home. Will provide printed patient care instructions, and any necessary prescriptions. Care plan and follow up instructions have been discussed with the patient prior to discharge. Last Vital Signs Date Time Temp Pulse Resp B/P (MAP) Pulse Ox O2 Delivery O2 Flow Rate FiO2 06/04/18 18:47 98.7 93 18 114/68 98 Room Air 98.8 Disposition: HOME, SELF-CARE Condition: Stable Scripts Meclizine Hcl* (MECLIZINE*) 12.5 Mg Tablet 12.5 MG ORAL THREE TIMES A DAY, #20 TAB Prov: Екатерина Carlos 06/04/18 Departure Forms: Return to Work Return to Work Date: Jun 06, 2018 Work Restrictions: None Return to Full Activity: Jun 06, 2018 Patient Instructions: Vertigo Additional Instructions: Take medications as directed. Follow up with a Primary Care Provider or Prescribing physician within 3 days, even if your symptoms have resolved. Return sooner to ED if new symptoms occur, or current symptoms become worse. Do not drink alcohol, drive, or operate heavy machinery while taking Verti-calm/ Meclizine as this may cause drowsiness. - Please note that this Emergency Department Report was dictated using LIBCASTpathology transcriptionist technology software, occasionally this can lead to erroneous entry secondary to interpretation by the dictation equipment. Екатерина Carlos Jun 04, 2018 20:07
[2018-06-04] MEDS ORDERED: MECLIZINE HCL12.5 MG ORAL (20:08)
[2018-06-04 20:16] VITALS: BP 118/64
== END 2018-06-04 20:15 | disposition home or self-care (01) ==
LOC: EMR 19:05
DX: R42 Dizziness and giddiness (principal); T43.225A Adverse effect of selective serotonin reuptake inhibitors, initial encounter; Y92.9 Unspecified place or not applicable; F32.9 Major depressive disorder, single episode, unspecified
CPT/HCPCS: 99282

== ENCOUNTER 2018-06-21 12:26 | Emergency (ER) | payer OTHER ==
[~2018-06-21] VITALS: Ht 180.3 cm; Wt 59.0 kg
[~2018-06-21 12:26] MED LIST changes: +MECLIZINE HCL12.5 MG ORAL
[2018-06-21] MEDS ORDERED: Ketorolac 30mg Inj IM ONE (12:45)
[2018-06-21] MEDS ORDERED: TRAMADOL HCL50 MG ORAL (12:50)
--- NOTE | 2018-06-21 12:50 | Emergency Room Report ---
History of Present Illness General Chief Complaint: Headache Source: Patient, Medical Record Present Illness HPI 28-year-old male patient presents ER complaining of headache 1 day. Patient reports that after waking up today began x-rays headache symptoms. Reports history of migraine. Reports headache is currently right-sided. Denies fever, chest pain, shortness of breath, vision changes, syncope, dizziness, photophobia or photophobia. Denies neck stiffness. Reports after taking Excedrin head ache has subsided "a little" but still present. Patient has been seen in this ER previously for headache symptoms in the past. reports history of migraine symptoms in the past. Denies worst headache of her life. Denies abdominal pain, dysuria, hematuria. Allergies: Coded Allergies: No Known Allergies (Unverified , 04/23/17) Patient History Past Medical History: see triage record Reviewed Nursing Documentation: PMH: Agreed; PSxH: Agreed Nursing Documentation-PM Past Medical History: No History, Except For Hx Cardiac Problems: No - MIGRAINE Review of Systems All Other Systems: negative except mentioned in HPI Physical Exam Vital Signs Date Time Temp Pulse Resp B/P (MAP) Pulse Ox O2 Delivery O2 Flow Rate FiO2 06/21/18 12:30 98.3 105 18 126/82 95 Room Air 98.2 Sp02 EP Interpretation: reviewed, normal General Appearance: well appearing, no apparent distress, alert, GCS 15, non- toxic Head: normocephalic, atraumatic Eyes: bilateral eye normal inspection, bilateral eye PERRL ENT: hearing grossly normal, normal pharynx, no angioedema, normal voice, uvula midline, moist mucus membranes Neck: full range of motion, no bony tend Respiratory: lungs clear, normal breath sounds, no rhonchi, no respiratory distress, no accessory muscle use, no wheezing, speaking full sentences Cardiovascular #1: regular rate, rhythm, no edema Gastrointestinal: non tender, soft, no mass, non-distended, no guarding, no rebound Genitourinary: no CVA tenderness Musculoskeletal: back normal, digits/nails normal, gait/station normal, normal range of motion, non-tender Neurologic: alert, oriented x3, responsive, stripper and printer III-XII nml as tested, motor strength/tone normal, SLR negative, sensory intact, cerebellar normal, normal gait, speech normal, other - negative Kernig, negative Brudzinski Psychiatric: mood/affect normal Skin: no rash Medical Decision Making PA Attestation Dr. Abbasi is my supervising Physician whom patient management has been discussed with. Diagnostic Impression: Primary Impression: Headache ER Course Pt presents to ED c/o headache. DDX considered but are not limited to migraine, cluster BLAKE, tension BLAKE, meningitis, ICH, intracranial mass, anxiety, stress, VITAL SIGNS are WNL, patient is afebrile ER COURSE provided patient with Toradol in the ER for pain symptoms. Physical exam benign, cranial nerves intact excessive, no focal deficits, patient resting in bed looking at his phone, do not believe patient requires CT head at this time. negative Kernig, negative Brudzinski, no neck stiffness, patient afebrile, do not believe patient has meningitis at this time. follow-up with primary care provider discuss referral to neurology for further testing and treatment as needed. ER precautions given. continue take Excedrin for headache symptoms. Patient reports pain improved. Patient is AOx3, neurologically intact, nontoxic appearing, and ambulatory. DISCHARGE: -Rx provided Ultram, CURES reviewed At this time pt is stable for d/c to home. Patient is resting comfortably, in no acute distress, nontoxic appearing, talking and smiling. Will provide with patient care instructions and any necessary prescriptions. Patient to take medication as instructed. Care plan and follow-up instructions provided. Patient questions asked and answered. Patient instructed to follow-up with primary care provider in the next 3 days and discuss further referral with PCP to neurologist. ER precautions given. Patient instructed to return to ER immediately for any new or worsening of symptoms including but not limited to fever, neck stiffness , vision changes, and neurological symptoms. Last Vital Signs Date Time Temp Pulse Resp B/P (MAP) Pulse Ox O2 Delivery O2 Flow Rate FiO2 06/21/18 12:30 98.3 105 18 126/82 95 Room Air 98.2 Disposition: HOME, SELF-CARE Condition: Stable Scripts Tramadol Hcl* (ULTRAM*) 50 Mg Tablet 50 MG ORAL Q6H PRN for For Pain, #10 TAB 0 Refills Prov: Gurmeet Alcantara P.Jayme. 06/21/18 Patient Instructions: Migraine Headache, General Headache Without Cause Additional Instructions: Followup with primary care provider in 3 -5 days. Discuss referral to neurology as needed for further treatment and imaging. Take medications as directed. Patient questions asked and answered. ER precautions given, patient instructed to return to ER immediately for any new or worsening of symptoms. Gurmeet Alcantara Jun 21, 2018 12:50
[2018-06-21 13:10] VITALS: BP 131/79
[2018-06-21 13:11] VITALS: BP 131/79
== END 2018-06-21 13:11 | disposition home or self-care (01) ==
LOC: EMR 12:48
DX: G43.909 Migraine, unspecified, not intractable, without status migrainosus (principal); F17.200 Nicotine dependence, unspecified, uncomplicated
CPT/HCPCS: 96372; 99283; J1885

== ENCOUNTER 2018-08-29 19:32 | Emergency (ER) | payer OTHER ==
[~2018-08-29] VITALS: Ht 180.3 cm; Wt 59.0 kg
[2018-08-29] MEDS ORDERED: NKM (19:40)
[2018-08-29 19:45] VITALS: BP 117/74
[2018-08-29] MEDS ORDERED: ZOFRAN4 M3 ORAL (20:01)
[2018-08-29] MEDS ORDERED: SUDAFED PE PRE1 EAC3 PO (20:01)
--- NOTE | 2018-08-29 20:01 | Emergency Room Report ---
History of Present Illness General Chief Complaint: Nausea Source: Patient Present Illness HPI 28-year-old male patient presents the ER complaining of nausea for the past 4 hours. Reports symptoms began after eating some leftover food. Reports no one else ate the food besides him, denies contacts with similar symptoms. Denies vomiting. Reports is been able to tolerate multiple cups of water since onset of nausea symptoms. Denies diarrhea. Denies abdominal pain. Reports able to pass flatus. Denies fever, chest pain, shortness of breath. Denies head injury or trauma. Denies headache. Denies photophobia or phonophobia. Denies vertigo. Reports having cold and congestion symptoms at home the past few days but states "is not being seen for that". Denies recent travel. Allergies: Coded Allergies: No Known Allergies (Unverified , 08/29/18) Patient History Past Medical History: see triage record Reviewed Nursing Documentation: PMH: Agreed; PSxH: Agreed Nursing Documentation-PMH Past Medical History: No History, Except For Hx Cardiac Problems: No - MIGRAINE History Of Psychiatric Problem: Yes - ANXIETY, DEPRESSION Review of Systems All Other Systems: negative except mentioned in HPI Physical Exam Vital Signs Date Time Temp Pulse Resp B/P (MAP) Pulse Ox O2 Delivery O2 Flow Rate FiO2 08/29/18 19:35 98.1 97 16 118/73 94 Room Air Sp02 EP Interpretation: reviewed, normal General Appearance: well appearing, no apparent distress, alert, GCS 15, non- toxic Head: normocephalic, atraumatic Eyes: bilateral eye normal inspection, bilateral eye PERRL ENT: hearing grossly normal, normal pharynx, no angioedema, normal voice, uvula midline, moist mucus membranes, nasal congestion Neck: full range of motion Respiratory: lungs clear, normal breath sounds, no rhonchi, no respiratory distress, no accessory muscle use, no wheezing, speaking full sentences Cardiovascular #2: 2+ radial (R), 2+ radial (L) Genitourinary: no CVA tenderness Musculoskeletal: back normal, digits/nails normal, gait/station normal, normal range of motion, non-tender Neurologic: alert, oriented x3, responsive, optician apprentice III-XII nml as tested, motor strength/tone normal, sensory intact, cerebellar normal, normal gait, speech normal Psychiatric: mood/affect normal Skin: no rash, normal turgor Medical Decision Making PA Attestation Dr. Abbasi is my supervising Physician whom patient management has been discussed with. Diagnostic Impression: Primary Impression: Nausea Additional Impression: Nasal congestion ER Course Pt. presents to the ED c/o nausea. Ddx considered but are not limited to gastritis, viral syndrome, food poisoning , cholecystitis, GERD, migraine, influenza. Negative Mtz sign, patient afebrile, no jaundice, does not require ultrasound at this time, low suspicion for cholecystitis. Vital signs: are WNL, pt. is afebrile ER COURSE: Provided with Zofran in the ER. Nasal congestion noted on physical exam, remainder of physical exam benign, no abdominal tenderness palpation, cranial nerves intact as tested. Patient reports feeling better following administration of medication. Patient able to tolerate PO fluids at this time. Patient does not require abx at this time; afebrile, no recent travel, no blood in stool. Return to ER if symptoms persist. Dermal skin turgor, cap refill less than 2 seconds, moist mucous membranes, low suspicion for dehydration. Drink fluids as tolerated to prevent dehydration. ER precautions given. DISCHARGE Rx provided for Zofran Rx provided for Sudafed At this time pt is stable for d/c to home. Patient is resting comfortably, in no acute distress, nontoxic appearing, talking without difficulty. Patient to take medications as instructed Will provide with patient care instructions and any necessary prescriptions. Care plan and follow-up instructions provided. Patient instructed to follow-up with primary care provider in 3 - 5 days. Patient questions asked and answered. Patient reports understanding and agreement to treatment plan.ER precautions given. Patient instructed to return to ER immediately for any new or worsening of symptoms including but not limited to increasing SOB, persistent fever, intractable vomiting. - Please note that this Emergency Department Report was dictated using Gramovoxdrop wire aliner technology software, occasionally this can lead to erroneous entry secondary to interpretation by the dictation equipment. Last Vital Signs Date Time Temp Pulse Resp B/P (MAP) Pulse Ox O2 Delivery O2 Flow Rate FiO2 08/29/18 19:35 98.1 97 16 118/73 94 Room Air Disposition: HOME, SELF-CARE Condition: Stable Scripts Guaifen/Phenyleph/Acetaminophn (Sudafed PE Pressure+Pain+Mucus) 1 Each Tablet 1 EACH PO BID, #24 TAB Prov: Gurmeet Alcantara 08/29/18 Ondansetron* (ZOFRAN*) 4 Mg Tablet 4 MG ORAL Q6H PRN for Nausea & Vomiting, #10 TAB Prov: Gurmeet Alcantara 08/29/18 Patient Instructions: Allergic Rhinitis, Nausea, Adult Additional Instructions: Followup with primary care provider in 3 -5 days for further treatment and referral to GI. Take medications as directed. Patient questions asked and answered. Drink fluids as tolerated to prevent dehydration. Avoid spicy foods, avoid dairy, avoid alcohol. Do not eat late night meals. Elevate head of bed when sleeping. ER precautions given, patient instructed to return to ER immediately for any new or worsening of symptoms including but not limited to chest pain, SOB, abdominal pain, blood in vomit, intractable vomiting. Gurmeet Alcantara Aug 29, 2018 20:01
[2018-08-29 20:13] VITALS: BP 117/74
== END 2018-08-29 20:18 | disposition home or self-care (01) ==
LOC: EMR 20:15
DX: R11.0 Nausea (principal); R09.81 Nasal congestion; F41.9 Anxiety disorder, unspecified; F32.9 Major depressive disorder, single episode, unspecified
CPT/HCPCS: 99282

== ENCOUNTER 2018-09-12 18:53 | Emergency (ER) | payer BC, OTHER ==
[~2018-09-12] VITALS: Ht 180.3 cm; Wt 59.0 kg
[~2018-09-12 18:53] MED LIST changes: +SUDAFED PE PRE1 EAC3 PO
[2018-09-12 19:00] VITALS: BP 113/74
--- NOTE | 2018-09-12 19:00 | NUR ---
ED Nurse Note: Pt walked in ER and c/o anxiety attack. Pt is AO x 4times, VSS, on room air no distress. ERMD seen Pt at bedside.
--- NOTE | 2018-09-12 19:47 | Emergency Room Report ---
History of Present Illness General Chief Complaint: General Complaint Source: Patient Present Illness HPI 28-year-old male patient presents the ER complaining of anxiety symptoms. Patient reports a history of anxiety. States that he is not followed up with his primary care provider or mental health provider. States he used to take medication however he does not remember the name of the medication. States he was previously on SSRI however believes he was transitioned to an antihistamine. States does not member the name of the medication. Denies fever , chest pain, shortness of breath contrary to triage report. Denies other acute symptoms. Denies vomiting. Denies thoughts of hurting himself or others. Denies other aggravating or relieving factors. Allergies: Coded Allergies: No Known Allergies (Unverified , 08/29/18) Patient History Past Medical History: see triage record Reviewed Nursing Documentation: PMH: Agreed; PSxH: Agreed Nursing Documentation-PMH Past Medical History: No Stated History Hx Cardiac Problems: No - MIGRAINE Review of Systems All Other Systems: negative except mentioned in HPI Physical Exam Vital Signs Date Time Temp Pulse Resp B/P (MAP) Pulse Ox O2 Delivery O2 Flow Rate FiO2 09/12/18 18:59 98.8 102 18 123/64 88 Room Air Sp02 EP Interpretation: reviewed, normal General Appearance: well appearing, no apparent distress, alert, GCS 15, non- toxic Head: normocephalic, atraumatic Eyes: bilateral eye normal inspection, bilateral eye PERRL ENT: hearing grossly normal, normal pharynx, no angioedema, normal voice, uvula midline, moist mucus membranes Neck: full range of motion Respiratory: lungs clear, normal breath sounds, no rhonchi, no respiratory distress, no accessory muscle use, no wheezing, speaking full sentences Cardiovascular #1: regular rate, rhythm, no edema Gastrointestinal: non tender, soft, no mass, non-distended, no guarding, no rebound Genitourinary: no CVA tenderness Musculoskeletal: back normal, digits/nails normal, gait/station normal, normal range of motion, non-tender Neurologic: alert, oriented x3, responsive, motor strength/tone normal, sensory intact, cerebellar normal, normal gait, speech normal Psychiatric: mood/affect normal Skin: no rash Lymphatic: no adenopathy Medical Decision Making PA Attestation Dr. Vidal is my supervising Physician whom patient management has been discussed with. Diagnostic Impression: Primary Impression: Anxiety attack ER Course Pt. presents to the ED c/o anxiety. Ddx considered but are not limited to anxiety, panic attack, drugs, [place]. Denies chest pain, SOB, low suspicion for cardiopulmonary cause of symptoms, does not require cardiac workup at this time. Vital signs: are WNL, pt. is afebrile ER COURSE: Physical exam benign. Patient resting comfortably in no acute distress. Informed patient that needs to followup with mental health professional. Provided with contact information for mental health resources. followup with PCP to discuss referral to mental health professional. ER precautions given. DISCHARGE: At this time pt is stable for d/c to home. Patient is resting comfortably, in no acute distress, nontoxic appearing, talking without difficulty. Patient to take medications as instructed Will provide with patient care instructions and any necessary prescriptions. Care plan and follow-up instructions provided. Patient instructed to follow-up with primary care provider in 3 - 5 days. Patient questions asked and answered. Patient reports understanding and agreement to treatment plan. ER precautions given. Patient instructed to return to ER immediately for any new or worsening of symptoms including but not limited to increasing SOB, persistent fever, chest pain, intractable vomiting. - Please note that this Emergency Department Report was dictated using Cloudmetermanager balance technology software, occasionally this can lead to erroneous entry secondary to interpretation by the dictation equipment. Last Vital Signs Date Time Temp Pulse Resp B/P (MAP) Pulse Ox O2 Delivery O2 Flow Rate FiO2 09/12/18 18:59 98.8 102 18 123/64 88 Room Air Disposition: HOME, SELF-CARE Condition: Stable Patient Instructions: Generalized Anxiety Disorder Additional Instructions: Follow-up with mental health urgent care. Followup with primary care provider in 3 -5 days. Take medications as directed. May take Benadryl, side effect drowsiness, do not take prior to drinking, driving, operating heavy machinery. Patient questions asked and answered. ER precautions given, patient instructed to return to ER immediately for any new or worsening of symptoms. Gurmeet Alcantara Sep 12, 2018 19:47
[2018-09-12 19:55] VITALS: BP 120/71
--- NOTE | 2018-09-12 19:55 | NUR ---
ED Nurse Note: Pt cleared DC by JACKSON. Pt is AO x 4times, VSS, on room air no distress. DC and Meds instructions given to Pt, Pt understood well. Belongings given to Pt. ID bend removed. Pt walked out unit with steady gait.
== END 2018-09-12 19:55 | disposition home or self-care (01) ==
LOC: EMR 19:45
DX: F41.9 Anxiety disorder, unspecified (principal)
CPT/HCPCS: 99282

== ENCOUNTER 2019-11-09 11:40 | Emergency (ER) | payer SELFPAY ==
[~2019-11-09] VITALS: Ht 180.3 cm; Wt 59.0 kg
--- NOTE | 2019-11-09 11:56 | NUR ---
ED Nurse Note: PT walked in to ED for C/O n/v x 3 days. denies use of ETOH/ drugs. pt alert x4.
[2019-11-09 11:57] VITALS: BP 120/62
--- NOTE | 2019-11-09 12:37 | Emergency Room Report ---
History of Present Illness General Chief Complaint: Nausea Source: Patient Present Illness HPI Disclaimer: Please note that this report is being documented using DRAGON technology. This can lead to erroneous entry secondary to incorrect interpretation by the dictating instrument. HPI: 29-year-old male presents for evaluation of nausea and diarrhea. Symptoms present 3 to 4 days. He notes some lower abdominal cramping and large-volume diarrhea without blood or melena. Denies dysuria hematuria. He notes nausea and dry heaving but no actual vomiting. Denies fever or chills. Denies chest pain, shortness of breath or cough. No known sick contacts. Decreased in appetite but continues to drink fluids. PMH: Depression PSH: Denies Allergies: Denies Social Hx: Denies alcohol or drug use Allergies: Coded Allergies: No Known Allergies (Unverified , 08/29/18) Nursing Documentation-PMH Hx Cardiac Problems: No - MIGRAINE History Of Psychiatric Problem: Yes - Depression Review of Systems All Other Systems: negative except mentioned in HPI Physical Exam Vital Signs Date Time Temp Pulse Resp B/P (MAP) Pulse Ox O2 Delivery O2 Flow Rate FiO2 11/09/19 11:48 98.6 99 18 116/62 (80) 94 Room Air General: Awake and alert, no acute distress HEENT: NC/AT. EOMI. Cardiovascular: RRR. S1 and S2 normal. No murmur appreciated Resp: Normal work of breathing. No cough, wheezing or crackles appreciated Abdomen: Abdomen is soft, nondistended. Nontender Skin: Intact. No abrasions, laceration or rash over the exposed skin MSK: Normal tone and bulk. Moving all extremities. No obvious deformity. Neuro: Awake and alert. Mentating appropriately. Medical Decision Making Diagnostic Impression: Primary Impression: Diarrhea ER Course 29-year-old male presents for evaluation of nausea and diarrhea of 3 days duration. Differential includes but not limited to viral syndrome, gastritis, enteritis, inflammatory bowel disease, pancreatitis, cholecystitis, food poisoning. Overall he is well-appearing, denies abdominal pain, soft abdomen at this time. Will start IV fluids, antiemetics and check screening labs. Do not believe he requires emergent imaging at this time. Can advance work-up as needed. Laboratory Tests Test 11/09/19 12:27 White Blood Count 4.3 K/UL (4.8-10.8) L Red Blood Count 4.88 M/UL (4.70-6.10) Hemoglobin 15.5 G/DL (14.2-18.0) Hematocrit 44.8 % (42.0-52.0) Mean Corpuscular Volume 92 FL (80-99) Mean Corpuscular Hemoglobin 31.8 PG (27.0-31.0) H Mean Corpuscular Hemoglobin Concent 34.7 G/DL (32.0-36.0) Red Cell Distribution Width 11.2 % (11.6-14.8) L Platelet Count 198 K/UL (150-450) Mean Platelet Volume 6.1 FL (6.5-10.1) L Neutrophils (%) (Auto) 66.5 % (45.0-75.0) Lymphocytes (%) (Auto) 23.9 % (20.0-45.0) Monocytes (%) (Auto) 7.1 % (1.0-10.0) Eosinophils (%) (Auto) 0.3 % (0.0-3.0) Basophils (%) (Auto) 2.2 % (0.0-2.0) H Urine Color [place] Urine Appearance Clear Urine pH 6 (4.5-8.0) Urine Specific [place] 1.020 (1.005-1.035) Urine Protein 1+ (NEGATIVE) H Urine Glucose (UA) Negative (NEGATIVE) Urine Ketones Negative (NEGATIVE) Urine Blood 2+ (NEGATIVE) H Urine Nitrite Negative (NEGATIVE) Urine Bilirubin Negative (NEGATIVE) Urine Ictotest Negative (NEGATIVE) Urine Urobilinogen Normal MG/DL (0.0-1.0) Urine Leukocyte Esterase Negative (NEGATIVE) Urine RBC 0-2 /HPF (0 - 0) H Urine WBC 0-2 /HPF (0 - 0) Urine Squamous Epithelial Cells Occasional /LPF Urine Bacteria None /HPF (NONE) Sodium Level 143 MMOL/L (136-145) Potassium Level 4.0 MMOL/L (3.5-5.1) Chloride Level 102 MMOL/L (98-107) Carbon Dioxide Level 27 MMOL/L (21-32) Anion Gap 14 mmol/L (5-15) Blood Urea Nitrogen 13 mg/dL (7-18) Creatinine 1.2 MG/DL (0.55-1.30) Estimate Glomerular Filtration Rate > 60 mL/min (>60) Glucose Level 124 MG/DL (74-106) H Calcium Level 9.1 MG/DL (8.5-10.1) Total Bilirubin 0.9 MG/DL (0.2-1.0) Aspartate Amino Transferase (AST) 29 U/L (15-37) Alanine Aminotransferase (ALT) 33 U/L (12-78) Alkaline Phosphatase 94 U/L (46-116) Total Protein 7.7 G/DL (6.4-8.2) Albumin 4.2 G/DL (3.4-5.0) Globulin 3.5 g/dL Albumin/Globulin Ratio 1.2 (1.0-2.7) Lipase 87 U/L (73-393) Reevaluation Time: 13:39 Last Vital Signs Date Time Temp Pulse Resp B/P (MAP) Pulse Ox O2 Delivery O2 Flow Rate FiO2 11/09/19 11:57 98.4 97 18 120/62 96 Room Air Reevaluation Impression Labs largely within normal limits. Patient remains asymptomatic in the emergency department. Likely a viral GI illness that should pass over the next few days. Encouraged him to drink plenty of fluids and will discharge with Zofran. Can follow-up with his PMD and return with new or worsening symptoms. Disposition: HOME, SELF-CARE Condition: Stable Scripts Ondansetron* (ZOFRAN*) 4 Mg Tablet 4 MG ORAL Q6H PRN for Nausea & Vomiting, #10 TAB Prov: Lorenzo Ta MD 11/09/19 Referrals: NOT CHOSEN [facility]/,REFERRING (PCP) Lorenzo Ta MD Nov 09, 2019 12:37
[2019-11-09 12:40] LABS: APPEARANCE,URINE CLEAR; BILIRUBIN, URINE NEGATIVE (NEGATIVE); COLOR,URINE AMBER; GLUCOSE, URINE (UA) NEGATIVE (NEGATIVE); KETONES,URINE NEGATIVE (NEGATIVE); LEUKOCYTE ESTERASE ,URINE NEGATIVE (NEGATIVE); NITRITE,URINE NEGATIVE (NEGATIVE); PH,URINE 6 (4.5-8.0); PROTEIN,URINE 1+ (NEGATIVE); UROBILINOGEN,URINE NORMAL MG/DL (0.0-1.0)
[2019-11-09 12:42] LABS: ANION GAP 14 mmol/L (5-15); BLOOD UREA NITROGEN 13 mg/dL (7-18); CALCIUM 9.1 MG/DL (8.5-10.1); CARBON DIOXIDE 27 MMOL/L (21-32); CHLORIDE 102 MMOL/L (98-107); CREATININE 1.2 MG/DL (0.55-1.30); SODIUM 143 MMOL/L (136-145)
[2019-11-09 12:47] LABS: ALANINE AMINOTRANSFERASE 33 U/L (12-78); ALBUMIN 4.2 G/DL (3.4-5.0); ALBUMIN/GLOBULIN RATIO 1.2 (1.0-2.7); ALKALINE PHOSPHATASE 94 U/L (46-116); ASPARTATE AMINO TRANSFERASE 29 U/L (15-37); BILIRUBIN,TOTAL 0.9 MG/DL (0.2-1.0)
[2019-11-09 13:02] LABS: BASOPHILS % (AUTO) 2.2 % (0.0-2.0); EOSINOPHILS % (AUTO) 0.3 % (0.0-3.0); HEMATOCRIT 44.8 % (42.0-52.0); HEMOGLOBIN 15.5 G/DL (14.2-18.0); LYMPHOCYTES % (AUTO) 23.9 % (20.0-45.0); MEAN CORPUSCULAR VOLUME 92 FL (80-99); MONOCYTES % (AUTO) 7.1 % (1.0-10.0); NEUTROPHILS % (AUTO) 66.5 % (45.0-75.0); PLATELET COUNT 198 K/UL (150-450); RED BLOOD COUNT 4.88 M/UL (4.70-6.10); RED CELL DISTRIBUTION WIDTH 11.2 % (11.6-14.8); WHITE BLOOD COUNT 4.3 K/UL (4.8-10.8)
[2019-11-09] MEDS ORDERED: ZOFRAN4 M3 ORAL (13:23)
[2019-11-09 13:35] VITALS: BP 122/64
--- NOTE | 2019-11-09 13:35 | NUR ---
ER DISCHARGE NOTE: Pt is cleared to be discharged per ERMD, pt is aox4, on room air, with stable vital signs. pt was given dc and prescription instructions, pt was able to verbalize understanding, pt id band and iv site removed without complications. pt is able to ambulate with steady gait. pt took all belongings.
== END 2019-11-09 13:35 | disposition home or self-care (01) ==
LOC: EMR 12:04
DX: R19.7 Diarrhea, unspecified (principal); R11.0 Nausea; F32.9 Major depressive disorder, single episode, unspecified
CPT/HCPCS: 36415; 80053; 81003; 83690; 85025; 96361; 96374; 99284; J2405; J7030

== ENCOUNTER 2019-12-01 12:07 | Emergency (ER) | payer SELFPAY ==
[~2019-12-01] VITALS: Ht 182.9 cm; Wt 79.4 kg
[2019-12-01 12:08] VITALS: BP 134/90
--- NOTE | 2019-12-01 12:17 | NUR ---
ED Nurse Note: Pt brought in by RA [id number] picked up from his apartment came in due to hyperventilation and pt states he felt his airway tight 10 mins ago. Denies CP. Hx of anxiety. Pt came in calm and speaks in full sentences at this time. Sats 98% in room air. AAO x4 and ambulatory.
--- NOTE | 2019-12-01 12:28 | NUR ---
HAND-OFF: Report given to Arnold BEAVERS.
--- NOTE | 2019-12-01 12:29 | Emergency Room Report ---
History of Present Illness General Chief Complaint: General Complaint Source: Patient, Medical Record Present Illness HPI Disclaimer: Please note that this report is being documented using TrenDemon[employer] technology. This can lead to erroneous entry secondary to incorrect interpretation by the dictating instrument. HPI: 29-year-old male with a history of anxiety presents for evaluation of palpitations. Symptoms have been intermittent over the past week. He feels a rapid and irregular heart rate, has a dry nonproductive cough, intermittent nausea and decreased appetite. Denies fever, chills, myalgias, nasal congestion. Today he felt his throat somewhat scratchy, dry and tight. He was hyperventilating at this time. Symptoms resolved after EMS put him on oxygen but he was not hypoxic. Oxygen was used for comfort only. Symptoms are now resolved. He is worried that something is deeply wrong with him. He states this is not like his usual anxiety. He has been isolated in his home per health department recommendations on the mcdonald virus outbreak. Denies any sick contacts. PMH: Anxiety PSH: Reviewed Allergies: Denies Social Hx: Denies drug or alcohol abuse Allergies: Coded Allergies: No Known Allergies (Unverified , 08/29/18) COVID-19 Screening Contact w/high risk pt: No Recent Travel to affected area: No Experienced COVID-19 symptoms?: Yes COVID-19 symptoms experienced: Shortness of Breath Nursing Documentation-PMH Hx Cardiac Problems: No - MIGRAINE Review of Systems All Other Systems: negative except mentioned in HPI Physical Exam Vital Signs Date Time Temp Pulse Resp B/P (MAP) Pulse Ox O2 Delivery O2 Flow Rate FiO2 12/01/19 12:08 98.1 100 20 134/90 (105) 98 Room Air General: Awake and alert, no acute distress HEENT: NC/AT. EOMI. PERRLA. Uvula is midline. No pharyngeal edema, erythema or exudate. Airway patent. Speaking in full sentences tolerating secretions. Neck: Supple, trachea midline, no lymphadenopathy Chest Wall: No tenderness, no deformity Cardiovascular: RRR. S1 and S2 normal. No murmur appreciated Resp: Normal work of breathing. No cough, wheezing or crackles appreciated Abdomen: Abdomen is soft, nondistended. Nontender Skin: Intact. No abrasions, laceration or rash over the exposed skin MSK: Normal tone and bulk. Moving all extremities. No obvious deformity. Neuro: Awake and alert. Mentating appropriately. Appears anxious. Medical Decision Making Diagnostic Impression: Primary Impression: Palpitations Additional Impression: Upper respiratory disease ER Course Is a 29-year-old male presenting for evaluation of palpitations, dry cough and decreased appetite over the past week. Differential includes was not limited to viral syndrome, gastritis, gastroenteritis, pancreatitis, ACS, palpitations, anxiety disorder, substance abuse to name a few. He is well-appearing arrives with stable vital signs. His complaints of throat tightness have now resolved. He is very anxious appearing and concerned that something is wrong "internally " as opposed to his typical anxiety. Will obtain EKG, chest x-ray, labs and tox screen Laboratory Tests Test 12/01/19 12:36 12/01/19 13:19 White Blood Count 5.1 K/UL (4.8-10.8) Red Blood Count 4.72 M/UL (4.70-6.10) Hemoglobin 15.4 G/DL (14.2-18.0) Hematocrit 43.0 % (42.0-52.0) Mean Corpuscular Volume 91 FL (80-99) Mean Corpuscular Hemoglobin 32.6 PG (27.0-31.0) H Mean Corpuscular Hemoglobin Concent 35.7 G/DL (32.0-36.0) Red Cell Distribution Width 12.1 % (11.6-14.8) Platelet Count 152 K/UL (150-450) Mean Platelet Volume 5.7 FL (6.5-10.1) L Neutrophils (%) (Auto) 63.9 % (45.0-75.0) Lymphocytes (%) (Auto) 24.5 % (20.0-45.0) Monocytes (%) (Auto) 8.4 % (1.0-10.0) Eosinophils (%) (Auto) 1.5 % (0.0-3.0) Basophils (%) (Auto) 1.7 % (0.0-2.0) Sodium Level 141 MMOL/L (136-145) Potassium Level 3.6 MMOL/L (3.5-5.1) Chloride Level 101 MMOL/L (98-107) Carbon Dioxide Level 27 MMOL/L (21-32) Anion Gap 14 mmol/L (5-15) Blood Urea Nitrogen 9 mg/dL (7-18) Creatinine 0.9 MG/DL (0.55-1.30) Estimated Glomerular Filtration Rate > 60 mL/min (>60) Glucose Level 108 MG/DL (74-106) H Calcium Level 8.9 MG/DL (8.5-10.1) Total Bilirubin 0.5 MG/DL (0.2-1.0) Aspartate Amino Transferase (AST) 66 U/L (15-37) H Alanine Aminotransferase (ALT) 56 U/L (12-78) Alkaline Phosphatase 94 U/L (46-116) Troponin I 0.000 ng/mL (0.000-0.056) Total Protein 7.6 G/DL (6.4-8.2) Albumin 4.3 G/DL (3.4-5.0) Globulin 3.3 g/dL Albumin/Globulin Ratio 1.3 (1.0-2.7) Urine Opiates Screen Negative (NEGATIVE) Urine Barbiturates Screen Negative (NEGATIVE) Phencyclidine (PCP) Screen Negative (NEGATIVE) Urine Amphetamines Screen Negative (NEGATIVE) Urine Benzodiazepines Screen Negative (NEGATIVE) Urine Cocaine Screen Negative (NEGATIVE) Urine Marijuana (THC) Screen Negative (NEGATIVE) EKG Diagnostic Results EKG Time: 12:51 Rate: tachycardiac Rhythm: NSR ST Segments: no acute changes Other Impression Sinus tachycardia, normal intervals, normal axis Rhythm Strip Diag. Results Rhythm Strip Time: 12:51 EP Interpretation: yes Rate: 130 Chest X-Ray Diagnostic Results Chest X-Ray Diagnostic Results : Chest X-Ray Ordered: Yes # of Views/Limited/Complete: 1 View Indication: Chest Pain EP Interpretation: Yes Interpretation: no consolidation, no effusion, no pneumothorax, no acute cardiopulmonary disease Impression: No acute disease Electronically Signed by: Electronically signed by Dr. Lorenzo Ta Reevaluation Time: 14:20 Last Vital Signs Date Time Temp Pulse Resp B/P (MAP) Pulse Ox O2 Delivery O2 Flow Rate FiO2 12/01/19 12:14 100 20 Room Air 12/01/19 12:08 98.1 134/90 98 Status: improved Reevaluation Impression Tachycardia improved after receiving Ativan. Labs returned within normal limits. Chest x-ray is unremarkable. Patient experiencing palpitations possibly from anxiety, dehydration, viral syndrome. Overall he is well- appearing and stable for outpatient follow-up. Discussed quarantine precautions. He is to follow-up with his PMD. Discussed reasons to return to the emergency department. He understands and agrees with this treatment plan. Disposition: HOME, SELF-CARE Condition: Stable Referrals: NOT CHOSEN [facility]/,REFERRING (PCP) Lorenzo Ta MD Dec 01, 2019 12:29
[2019-12-01] MEDS ORDERED: LORazepam Inj 2mg/ml 1ml IV ONE (13:00)
[2019-12-01 13:16] LABS: BASOPHILS % (AUTO) 1.7 % (0.0-2.0); EOSINOPHILS % (AUTO) 1.5 % (0.0-3.0); HEMOGLOBIN 15.4 G/DL (14.2-18.0); LYMPHOCYTES % (AUTO) 24.5 % (20.0-45.0); MEAN CORPUSCULAR VOLUME 91 FL (80-99); MONOCYTES % (AUTO) 8.4 % (1.0-10.0); NEUTROPHILS % (AUTO) 63.9 % (45.0-75.0); PLATELET COUNT 152 K/UL (150-450); RED BLOOD COUNT 4.72 M/UL (4.70-6.10); RED CELL DISTRIBUTION WIDTH 12.1 % (11.6-14.8); WHITE BLOOD COUNT 5.1 K/UL (4.8-10.8)
[2019-12-01 13:33] LABS: ALANINE AMINOTRANSFERASE 56 U/L (12-78); ALBUMIN 4.3 G/DL (3.4-5.0); ALBUMIN/GLOBULIN RATIO 1.3 (1.0-2.7); ALKALINE PHOSPHATASE 94 U/L (46-116); ANION GAP 14 mmol/L (5-15); ASPARTATE AMINO TRANSFERASE 66 U/L (15-37); BILIRUBIN,TOTAL 0.5 MG/DL (0.2-1.0); BLOOD UREA NITROGEN 9 mg/dL (7-18); CALCIUM 8.9 MG/DL (8.5-10.1); CARBON DIOXIDE 27 MMOL/L (21-32); CHLORIDE 101 MMOL/L (98-107); CREATININE 0.9 MG/DL (0.55-1.30); POTASSIUM 3.6 MMOL/L (3.5-5.1); SODIUM 141 MMOL/L (136-145)
[2019-12-01 14:42] VITALS: BP 129/81
--- NOTE | 2019-12-01 14:42 | NUR ---
ER DISCHARGE NOTE: Patient is cleared to be discharged per ERMD, pt is aox4, on room air, with stable vital signs. pt was given dc and prescription instructions, pt was able to verbalize understanding, pt id band and iv site removed without complications. pt is able to ambulate with steady gait. pt took all belongings. Pt educated to see pMD ESTEBAN.
--- NOTE | 2019-12-02 12:25 | Diagnostic Imaging Report ---
Indication: Chest pain, Comparison: None A single view chest radiograph was obtained. Findings: Cardiomediastinal appearance is within normal limits for age. The lungs are clear. Pulmonary vascularity is appropriate. The diaphragmatic contour is smooth and costophrenic angles are sharp. No pleural effusions are identified. The bones are unremarkable. Impression: No acute findings
== END 2019-12-01 14:42 | disposition home or self-care (01) ==
LOC: EDBD 12:07 → EMR 12:21
DX: R00.2 Palpitations (principal); J06.9 Acute upper respiratory infection, unspecified; F41.9 Anxiety disorder, unspecified; R06.02 Shortness of breath; R00.0 Tachycardia, unspecified
CPT/HCPCS: 36415; 71045; 80053; 80307; 84484; 85025; 93005; 96374; 99284